=== PATIENT | male | born 1945 | race Caucasian/White ===

== ENCOUNTER 2022-12-24 13:32 | Emergency (ER) | payer MEDICARE ==
[~2022-12-24] VITALS: Ht 167.7 cm; Wt 104.0 kg
[2022-12-24 14:02] LABS: BASOPHILS # (AUTO) 0.1 10^3/uL (0.0-0.1); BASOPHILS % (AUTO) 1 % (0-10); EOSINOPHILS # (AUTO) 0.3 10^3/uL (0.0-0.3); EOSINOPHILS % (AUTO) 4 % (0-10); HEMATOCRIT 46 % (40-54); LYMPHOCYTES # (AUTO) 1.3 10^3/uL (1.0-4.0); LYMPHOCYTES % (AUTO) 21 % (12-44); MEAN CORPUSCULAR HEMOGLOBIN 27 pg (25-34); MEAN CORPUSCULAR HGB CONC 31 g/dL (32-36); MEAN CORPUSCULAR VOLUME 90 fL (80-99); MONOCYTES # (AUTO) 0.6 10^3/uL (0.0-1.0); MONOCYTES % (AUTO) 9 % (0-12); NEUTROPHILS # (AUTO) 4.2 10^3/uL (1.8-7.8); NEUTROPHILS % (AUTO) 65 % (42-75); PLATELET COUNT 174 10^3/uL (130-400); WHITE BLOOD COUNT 6.4 10^3/uL (4.3-11.0)
[2022-12-24 14:07] LABS: ALBUMIN 3.9 GM/DL (3.2-4.5); CHLORIDE 108 MMOL/L (98-107); POTASSIUM 4.2 MMOL/L (3.6-5.0); SODIUM 143 MMOL/L (135-145)
[2022-12-24 14:08] LABS: CALCIUM 9.3 MG/DL (8.5-10.1)
[2022-12-24 14:09] LABS: GLUCOSE 130 MG/DL (70-105); TOTAL PROTEIN 7.5 GM/DL (6.4-8.2)
[2022-12-24 14:10] LABS: CARBON DIOXIDE 22 MMOL/L (21-32)
[2022-12-24] MEDS ORDERED: fentaNYL INJ 100 MCG/2 ML AMP IVP STA ×3 (14:10→16:23)
[2022-12-24 14:11] LABS: BILIRUBIN,TOTAL 1.5 MG/DL (0.1-1.0)
[2022-12-24 14:13] LABS: ALKALINE PHOSPHATASE 149 U/L (40-136); CREATININE SERUM 1.24 MG/DL (0.60-1.30); GFR ESTIMATED 60
[2022-12-24 14:14] LABS: BUN/CREATININE RATIO 18
[2022-12-24 14:16] LABS: ALANINE AMINOTRANSFERASE 18 U/L (0-55)
--- NOTE | 2022-12-24 14:26 | ED Fall/Injury ---
General Chief Complaint: Trauma-Non Activation Stated Complaint: FALL Nursing Triage Note: PT TO [facility] BY [facility] WITH C/O R SHOULDER PAIN AND FOREHEAD SCRAP AFTER A FALL AT HIS HOTEL IN THE BATHROOM. PT WAS TRYING TO STAND AND FELL FOWARD INTO DOOR. PT UNKNOW IF LOC Source: patient Exam Limitations: no limitations History of Present Illness Date Seen by Provider: Dec 24, 2022 Time Seen by Provider: 13:42 Initial Comments Here by EMS with report of fall at the hotel. Apparently he is here visiting family and is staying at the hotel. He was getting ready to go to the bathroom and was pulling down his pants to sit down when he became dizzy and fell over. He hit his right arm as well as left shoulder and head. Unsure of loss of consciousness. He is on clopidogrel. Does have history of heart failure and is on Lasix and does have pacemaker. Ports that he did not take his Lasix both doses yesterday was only able to take 1 dose last night. Took another dose this morning and that is what he believes was causing him to have to go to the bathroom. 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 He believes his tetanus is up-to-date. Does have abrasion to the forehead and pain and deformity to the right upper arm as well as left shoulder. Denies neck, back, chest or abdominal pain. Occurred: this morning Severity: mild Context: lost balance Loss of Consciousness: unsure Associated Symptoms (Fall): No Abdominal Pain, No Chest Pain; Dizziness; No Headache, No Nausea/Vomiting, No Neck Pain, No Shortness of Air Allergies and Home Medications Allergies Coded Allergies: Beta-Blockers (Beta-Adrenergic Bloc (Verified Allergy, Unknown, 12/24/22) apixaban (Verified Allergy, Unknown, 12/24/22) Patient Home Medication List Home Medication List Reviewed: Yes Hydrocodone/Acetaminophen (Hydrocodone-Acetamin 7.5-325) 7.5 Mg-325 Mg Tablet, 1 EACH PO Q6H PRN for PAIN-MODERATE (5-7) Prescribed by: NARINDER LEWIS on 12/24/22 3754 Review of Systems Review of Systems Constitutional: No chills, No fever Eyes: No Symptoms Reported Ears, Nose, Mouth, Throat: no symptoms reported Respiratory: No cough; other (Dyspnea on exertion) Cardiovascular: No chest pain, No palpitations Gastrointestinal: No nausea, No vomiting Genitourinary: no symptoms reported Musculoskeletal: see HPI, joint pain, muscle pain Skin: see HPI, lesions Past Foldoag-Deboii-Uogfmh Hx Patient Social History Tobacco Use?: No Substance use?: No Alcohol Use?: No Pt feels they are or have been: No Past Medical History Surgery/Hospitalization HX: CELLULITIS, AFIB GASTRIC BYPASS, PACER, WATCHMAN, BYPASS, APPY Surgeries: Yes Appendectomy, CABG Respiratory: No Cardiac: Yes Chronic Edema/Swelling, Hypertension, Irregular Heartbeat Endocrine: Yes Family Medical History Reviewed Nursing Family Hx Physical Exam Vital Signs Vital Signs - First Documented 12/24/22 13:34 Temp 36.0 Pulse 142 Resp 18 B/P (MAP) 121/65 (83) Pulse Ox 98 O2 Delivery Room Air Capillary Refill : Height, Weight, BMI Height: '" Weight: lbs. oz. kg; 36.00 BMI Method: General Appearance: WD/WN, no apparent distress, obese HEENT: PERRL/EOMI, pharynx normal Neck: non-tender, full range of motion, supple, normal inspection Cardiovascular: regular rate, rhythm, no murmur Respiratory: lungs clear, normal breath sounds Gastrointestinal: non tender, soft Back: normal inspection, no CVA tenderness, no vertebral tenderness Extremities: inflammation, swelling Neurologic/Psychiatric: alert, oriented x 3 Ashia Coma Score Best Eye Response: (4) Open Spontaneously Best Verbal Response: (5) Oriented Best Motor Response: (6) Obeys Commands Procedures/Interventions Splinting and Joint Reduction : Location: Right humerus Pre-Proc Neuro Vasc Exam: normal Post-Proc Neuro Vasc Exam: normal Progress Coaptation splint applied to the right humerus using 3 inch Ortho-Glass over bulky Webril and secured with two 4 inch and one 3 inch Chirag wrap's and placed in sling. Tolerated procedure well with no complications and improved afterwards. Arm Sling: Large Hand-Made Type: orthoglass (Coaptation splint) Progress/Results/Core Measures Results/Orders Lab Results Laboratory Tests Test 12/24/22 13:38 Range/Units White Blood Count 6.4 4.3-11.0 10^3/uL Red Blood Count 5.11 4.30-5.52 10^6/uL Hemoglobin 14.0 13.3-17.7 g/dL Hematocrit 46 40-54 % Mean Corpuscular Volume 90 80-99 fL Mean Corpuscular Hemoglobin 27 25-34 pg Mean Corpuscular Hemoglobin Concent 31 L 32-36 g/dL Red Cell Distribution Width 18.6 H 10.0-14.5 % Platelet Count 174 130-400 10^3/uL Mean Platelet Volume 10.0 9.0-12.2 fL Immature Granulocyte % (Auto) 1 % Neutrophils (%) (Auto) 65 42-75 % Lymphocytes (%) (Auto) 21 12-44 % Monocytes (%) (Auto) 9 0-12 % Eosinophils (%) (Auto) 4 0-10 % Basophils (%) (Auto) 1 0-10 % Neutrophils # (Auto) 4.2 1.8-7.8 10^3/uL Lymphocytes # (Auto) 1.3 1.0-4.0 10^3/uL Monocytes # (Auto) 0.6 0.0-1.0 10^3/uL Eosinophils # (Auto) 0.3 0.0-0.3 10^3/uL Basophils # (Auto) 0.1 0.0-0.1 10^3/uL Immature Granulocyte # (Auto) 0.0 0.0-0.1 10^3/uL Sodium Level 143 135-145 MMOL/L Potassium Level 4.2 3.6-5.0 MMOL/L Chloride Level 108 H 98-107 MMOL/L Carbon Dioxide Level 22 21-32 MMOL/L Anion Gap 13 5-14 MMOL/L Blood Urea Nitrogen 22 H 7-18 MG/DL Creatinine 1.24 0.60-1.30 MG/DL Estimat Glomerular Filtration Rate 60 BUN/Creatinine Ratio 18 Glucose Level 130 H 70-105 MG/DL Calcium Level 9.3 8.5-10.1 MG/DL Corrected Calcium 9.4 8.5-10.1 MG/DL Total Bilirubin 1.5 H 0.1-1.0 MG/DL Aspartate Amino Transf (AST/SGOT) 23 5-34 U/L Alanine Aminotransferase (ALT/SGPT) 18 0-55 U/L Alkaline Phosphatase 149 H 40-136 U/L Troponin I < 0.028 <0.028 NG/ML C-Reactive Protein High Sensitivity 0.92 H 0.00-0.50 MG/DL B-Type Natriuretic Peptide 154.6 H <100.0 PG/ML Total Protein 7.5 6.4-8.2 GM/DL Albumin 3.9 3.2-4.5 GM/DL My Orders Orders - NARINDER LEWIS MD Ekg Tracing (12/24/22 13:54) Monitor-Rhythm Ecg Trace Only (12/24/22 13:54) Ct Head Wo (12/24/22 13:54) Chest 1 View, Ap/Pa Only (12/24/22 13:54) Humerus, Right, 2 Views (12/24/22 13:54) Bnp Hitchcock (12/24/22 13:54) Cbc With Automated Diff (12/24/22 13:54) Comprehensive Metabolic Panel (12/24/22 13:54) Hs C Reactive Protein (12/24/22 13:54) Troponin I Hitchcock (12/24/22 13:54) Fentanyl Inj (Sublimaze Injection) (12/24/22 14:10) Shoulder, Left, 2 Views (12/24/22 13:54) Fentanyl Inj (Sublimaze Injection) (12/24/22 15:02) Fentanyl Inj (Sublimaze Injection) (12/24/22 16:23) Vital Signs/I&O 12/24/22 13:34 Temp 36.0 Pulse 142 Resp 18 B/P (MAP) 121/65 (83) Pulse Ox 98 O2 Delivery Room Air Blood Pressure Mean: 83 Progress Progress Note : Progress Note Seen and evaluated. Given patient's fall and cardiac status as well as use of Plavix, we will get CT of the head as well as get chest x-ray, left shoulder x- ray and right humerus x-ray due to areas of pain. EKG ordered due to dizziness. We will check labs including CBC, CMP, CRP, BNP and troponin. Patient does have findings of chronic cellulitis on exam but he states that is unchanged. We will check CRP for current inflammatory process as well as evaluate white count. Fentanyl 50 mcg IV ordered for pain. Monitor patient. Differential diagnosis includes right humerus fracture. Left shoulder strain or fracture, intracranial hemorrhage, minor head injury, electrolyte abnormality, heart failure, cardiac event 1554: I have reviewed patient's laboratory data. CBC is grossly normal. CMP overall nonconcerning with slightly elevated blood glucose. CRP is negative. BNP is not significantly elevated. I have reviewed x-rays and find right humerus x-ray shows proximal displaced humerus fracture on my interpretation. Left shoulder does not show any fracture on my interpretation. Chest x-ray shows cardiomegaly without obvious significant infiltrate on my interpretation. CT of the head shows no obvious intracranial hemorrhage on my interpretation. See radiology report for full details. I did discuss the humerus fracture with Dr. Butt, orthopedics on-call. He is recommending coaptation splint which we will apply as well as sling and he can be seen in his office next week or follow-up with orthopedics on his return home. Patient did require additional dosing of fentanyl 50 mcg IV for pain. He is better with sitting up position. Monitor patient. 1655: Coaptation splint was placed by me. See procedure note. We did give fentanyl 75 mcg IV prior to placement of splint and sling. This did seem to help. Splint is helping with pain overall now. I have sent prescription for hydrocodone 7.5/325. I did give them information on Dr. Butt in case they stay around next week. That patient and family very appreciative of care. Discharged home with return precautions. Patient and family verbalized understanding of instructions and agreement with plan. Initial ECG Impression Date: Dec 24, 2022 Initial ECG Impression Time: 14:10 Initial ECG Rate: 69 Comment Electronic ventricular pacemaker with extreme right axis deviation. No evidence of ST elevation [place]. Interpreted by me. Diagnostic Imaging Diagonstic Imaging: CT Plain Films/CT/US/NM/MRI: head Comments [facility] [place], [place] NAME: ANT [facility] REC#: [id number] PT STATUS: REG ER : 1945 PHYSICIAN: NARINDER LEWIS MD ADMIT DATE: 12/24/22/ER Signed Date of Exam:12/24/22 CT HEAD WO PROCEDURE: CT head without contrast. TECHNIQUE: Multiple contiguous axial images were obtained through the brain without the use of intravenous contrast. Auto Exposure Controls were utilized during the CT exam to meet ALARA standards for radiation dose reduction. INDICATION: Fall, head injury, anticoagulated patient. COMPARISON: No priors. FINDINGS: There is no intracerebral hemorrhage. No hydrocephalus, edema, mass, mass effect, or abnormal extra-axial fluid collection. Basilar cisterns are patent. There is no sulcal effacement. Orbits, sinuses, and calvarium are nonacute. There is atrophy and white matter disease and chronic white matter disease as well as atherosclerotic vascular calcifications, all believed chronic and senescent. No hemo-sinus. No pneumocephalus. No fracture. IMPRESSION: Some chronic senescent changes in the brain, but no hemorrhage, fracture, or other acute/post-traumatic abnormalities identified. Dictated by: Dictated on workstation # [id number] Dict: 12/24/22 1434 Trans: 12/24/22 1526 [id number] Interpreted by: WILLIAM VASQUEZ Electronically signed by: WILLIAM VASQUEZ 12/24/22 152 Reviewed: Reviewed by [place] Diagonstic Imaging: Xray Plain Films/CT/US/NM/MRI: other Comments [facility], [place] NAME: ANT [facility] REC#: [id number] PT STATUS: REG ER : 1945 PHYSICIAN: NARINDER LEWIS MD ADMIT DATE: 12/24/22/ER Draft Date of Exam:12/24/22 HUMERUS, RIGHT, 2 VIEWS HUMERUS, RIGHT, one view INDICATION: Right shoulder pain COMPARISON: None available. TECHNIQUE: Single AP view of the right humerus. FINDINGS: There is an acute oblique fracture in the proximal shaft of the humerus. The distal fragment has posterior displacement of 2 cm. IMPRESSION: Acute and displaced humeral shaft fracture. Dictated on workstation # [id number] Dict: 12/24/22 1505 Trans: 12/24/22 1507 [facility] [id number] Interpreted by: JENAE CÁRDENAS MD Electronically signed by: Reviewed: Reviewed by [place] Diagonstic Imaging: Xray Plain Films/CT/US/NM/MRI: other Comments [facility] [place] [place] NAME: ANT [facility] REC#: [id number] PT STATUS: REG ER : 1945 PHYSICIAN: NARINDER LEWIS MD ADMIT DATE: 12/24/22/ER Draft Date of Exam:12/24/22 SHOULDER, LEFT, 2 VIEWS SHOULDER, LEFT, 2 VIEWS INDICATION: Left shoulder pain COMPARISON: None available. TECHNIQUE: 2 views left shoulder FINDINGS: Glenohumeral and acromioclavicular joints are normal alignment. No acute fracture about the left shoulder. Subacromial space is preserved. IMPRESSION: No acute fracture about the left shoulder. Dictated on workstation # [id number] Dict: 12/24/22 1507 Trans: 12/24/22 1510 [facility] [id number] Interpreted by: JENAE CÁRDENAS MD Electronically signed by: Anngonsclarisse Imaging: Xray Plain Films/CT/US/NM/MRI: chest Comments [facility], [place] NAME: ANT [facility] REC#: [id number] PT STATUS: REG ER : 1945 PHYSICIAN: NARINDER LEWIS MD ADMIT DATE: 12/24/22/ER Draft Date of Exam:12/24/22 CHEST 1 VIEW, AP/PA ONLY CHEST 1 VIEW, AP/PA ONLY INDICATION: Weakness, trauma. COMPARISON: None available. FINDINGS: Cardiomegaly is present. Potential small left pleural effusion. Left perihilar opacities are noted. No pneumothorax. Left pectoral single chamber pacemaker has intact lead. IMPRESSION: 1. Small left pleural effusion with left-sided pulmonary opacities that could be due to atelectasis, asymmetric edema, or pneumonia. Dictated on workstation # [id number] Dict: 12/24/22 1504 Trans: 12/24/22 [phone] Interpreted by: JENAE CÁRDENAS MD Electronically signed by: Departure Impression Primary Impression: Closed right humeral fracture Qualified Codes: S42.291A - Other displaced fracture of upper end of right humerus, initial encounter for closed fracture Additional Impressions: Left shoulder pain Qualified Codes: M25.512 - Pain in left shoulder Minor head injury Qualified Codes: S09.90XA - Unspecified injury of head, initial encounter Disposition: 01 HOME, SELF-CARE Condition: Stable Transfer Method of Transfer: Private Vehicle Departure-Patient Inst. Decision time for Depature: 16:58 Referrals: NO,LOCAL PHYSICIAN (PCP) Primary Care Physician LEÓN BUTT MD Patient Instructions: Upper Arm Fracture ED, Minor Head Injury, Adult ED, Shoulder Pain (DC) Add. Discharge Instructions: All discharge instructions reviewed with patient and/or family. Voiced understanding. Take medication as directed. If you are not taking the prescribed pain medicine, you may take Tylenol/acetaminophen 1000 mg every 6-8 hours as needed for pain. Do not take both at the same time. If you are planning on staying in town for the next week, call Dr. Butt's office on Tuesday morning for appointment for recheck and further evaluation of the right humerus fracture. Keep splint clean and dry and use sling at all times. If you are returning to your home next Tuesday, you will need to follow-up with a local orthopedist next week for recheck and further evaluation as discussed above. Return for worse pain, fever, vomiting, weakness, breathing problems, numbness or tingling or other concerns as needed. Continue other home medications as previously prescribed. Scripts Hydrocodone/Acetaminophen (Hydrocodone-Acetamin 7.5-325) 7.5 Mg-325 Mg Tablet 1 EACH PO Q6H PRN for PAIN-MODERATE (5-7) for 7 Days, #16 TAB 0 Refills Prov: NARINDER LEWIS MD 12/24/22 NARINDER LEWIS MD Dec 24, 2022 14:26
--- NOTE | 2022-12-24 14:39 | Diagnostic Imaging Report ---
PROCEDURE: CT head without contrast. TECHNIQUE: Multiple contiguous axial images were obtained through the brain without the use of intravenous contrast. Auto Exposure Controls were utilized during the CT exam to meet ALARA standards for radiation dose reduction. INDICATION: Fall, head injury, anticoagulated patient. COMPARISON: No priors. FINDINGS: There is no intracerebral hemorrhage. No hydrocephalus, edema, mass, mass effect, or abnormal extra-axial fluid collection. Basilar cisterns are patent. There is no sulcal effacement. Orbits, sinuses, and calvarium are nonacute. There is atrophy and white matter disease and chronic white matter disease as well as atherosclerotic vascular calcifications, all believed chronic and senescent. No hemo-sinus. No pneumocephalus. No fracture. IMPRESSION: Some chronic senescent changes in the brain, but no hemorrhage, fracture, or other acute/post-traumatic abnormalities identified. Dictated by: Dictated on workstation # [id number]
--- NOTE | 2022-12-24 15:07 | Diagnostic Imaging Report ---
CHEST 1 VIEW, AP/PA ONLY INDICATION: Weakness, trauma. COMPARISON: None available. FINDINGS: Cardiomegaly is present. Potential small left pleural effusion. Left perihilar opacities are noted. No pneumothorax. Left pectoral single chamber pacemaker has intact lead. IMPRESSION: 1. Small left pleural effusion with left-sided pulmonary opacities that could be due to atelectasis, asymmetric edema, or pneumonia. Dictated by: Dictated on workstation # [id number]
--- NOTE | 2022-12-24 15:08 | Diagnostic Imaging Report ---
HUMERUS, RIGHT, one view INDICATION: Right shoulder pain COMPARISON: None available. TECHNIQUE: Single AP view of the right humerus. FINDINGS: There is an acute oblique fracture in the proximal shaft of the humerus. The distal fragment has posterior displacement of 2 cm. IMPRESSION: Acute and displaced humeral shaft fracture. Dictated by: Dictated on workstation # [id number]
--- NOTE | 2022-12-24 15:11 | Diagnostic Imaging Report ---
SHOULDER, LEFT, 2 VIEWS INDICATION: Left shoulder pain COMPARISON: None available. TECHNIQUE: 2 views left shoulder FINDINGS: Glenohumeral and acromioclavicular joints are normal alignment. No acute fracture about the left shoulder. Subacromial space is preserved. IMPRESSION: No acute fracture about the left shoulder. Dictated by: Dictated on workstation # [id number]
[2022-12-24] MEDS ORDERED: HYDR-3817 PO (16:55)
[2022-12-24 17:15] VITALS: BP 136/64
== END 2022-12-24 17:43 | disposition home or self-care (01) ==
LOC: ER 13:36
DX: S09.90XA Unspecified injury of head, initial encounter (principal); S42.201A Unspecified fracture of upper end of right humerus, initial encounter for closed fracture; L03.90 Cellulitis, unspecified; E66.9 Obesity, unspecified; Z68.36 Body mass index [BMI] 36.0-36.9, adult; Z79.02 Long term (current) use of antithrombotics/antiplatelets; W18.30XA Fall on same level, unspecified, initial encounter; Y92.59 Other trade areas as the place of occurrence of the external cause
CPT/HCPCS: 29105; 36415; 70450; 71045; 73030; 73060; 80053; 83880; 84484; 85025; 86141; 93005

== ENCOUNTER 2022-12-25 21:55 | Inpatient (IN) | payer MEDICARE ==
[~2022-12-25] VITALS: Ht 167.7 cm; Wt 110.8 kg
[~2022-12-25 21:55] MED LIST: HYDR-3817 PO
--- NOTE | 2022-12-25 22:03 | ED General ---
General Stated Complaint: PAIN Source of Information: Patient Exam Limitations: No Limitations History of Present Illness Date Seen by Provider: Dec 25, 2022 Time Seen by Provider: 22:02 Initial Comments Patient is a 77-year-old male who presents to the emergency department with a chief complaint of diffuse pain, body aches. He was seen here in the emergency department 24 hours ago after becoming dizzy at a local hotel where he and his are staying and falling. Patient then presented to the emergency department where he was diagnosed with a spiral right proximal humerus fracture that was displaced. He had general medical work-up which included basic labs, chest x-ray, CT head without contrast. Patient was given multiple doses of IV pain medications, a prescription for hydrocodone and discharged in the care of his back to the hotel. He was anticipating traveling back home to [place] on Tuesday, however, family states that he has not gotten out of the chair at the bedside in the hotel for the last 24 hours. He is unable to stand. He has urinated on himself due to the inability to take care of toileting. Complains of severe pain to the left hip and thigh. Pain in the area of the right upper extremity splint as well. States he has not really eaten very well today. He is only had minimal urine output. He is normally on Lasix daily. His ates that she has not given him his Lasix today. H/o CHF and CABG; pacemaker. Anxiety; Allergies; Reflux. He also has a son at the bedside who is knowledgeable on his dad's health. He states that Sarabjit had home physical therapy prior to leaving [place] in order to help him tolerate the trip. He does not believe they will be able to get him into an airplane on Tuesday and the condition that he is. He states that his care exceeds the ability of Sarabjit's to maintain. Timing/Duration: 12-24 Hours Severity: Severe Modifying Factors: worse with Movement Associated Systoms: Loss of Appetite, Malaise, Weakness Allergies and Home Medications Allergies Coded Allergies: Beta-Blockers (Beta-Adrenergic Bloc (Verified Allergy, Unknown, 12/24/22) apixaban (Verified Allergy, Unknown, 12/24/22) Patient Home Medication List Home Medication List Reviewed: Yes Hydrocodone/Acetaminophen (Hydrocodone-Acetamin 7.5-325) 7.5 Mg-325 Mg Tablet, 1 EACH PO Q6H PRN for PAIN-MODERATE (5-7) Prescribed by: NARINDER LEWIS on 12/24/22 4245 Review of Systems Review of Systems Constitutional: see HPI EENTM: no symptoms reported Respiratory: no symptoms reported Cardiovascular: no symptoms reported Gastrointestinal: loss of appetite Genitourinary: decreased output Musculoskeletal: joint pain (right arm; left hip and leg) Skin: no symptoms reported All Other Systems Reviewed Negative Unless Noted: Yes Past Cwpvilq-Veybox-Jpdwvi Hx Past Medical History Surgery/Hospitalization HX: CELLULITIS, AFIB GASTRIC BYPASS, PACER, WATCHMAN, BYPASS, APPY Surgeries: Yes Appendectomy, CABG Respiratory: No Cardiac: Yes Chronic Edema/Swelling, Hypertension, Irregular Heartbeat Endocrine: Yes Physical Exam Vital Signs Vital Signs - First Documented 12/25/22 21:56 Temp 36.3 Pulse 71 Resp 20 B/P (MAP) 96/51 (66) Pulse Ox 98 O2 Delivery Room Air Capillary Refill : Height, Weight, BMI Height: '" Weight: lbs. oz. kg; 36.00 BMI Method: General Appearance: No Apparent Distress, WD/WN, Obese Eyes: Bilateral Eye Normal Inspection HEENT: PERRL/EOMI Neck: Normal Inspection Respiratory: Lungs Clear, No Accessory Muscle Use, No Respiratory Distress, De creased Breath Sounds (at bases (auscultated anteriorly)) Cardiovascular: Regular Rate, Rhythm, Normal Peripheral Pulses Gastrointestinal: Normal Bowel Sounds, Distended, Other (obese) Back: Other ((not examined)) Extremity: Pedal Edema (1+ bilateral LE edema - with chronic venous insuffieciency skin schanges), Other (RUE in long Co-Ap splint; Left thigh - edema and tender to palpation over the prox left hip) Neurologic/Psychiatric: Alert, Oriented x3, No Motor/Sensory Deficits, Normal Mood/Affect Skin: Warm/Dry Progress/Results/Core Measures Suspected Sepsis SIRS Temperature: Pulse: Respiratory Rate: Laboratory Tests 12/25/22 23:09: White Blood Count 10.3 Blood Pressure / Mean: Laboratory Tests 12/25/22 23:09: Creatinine 1.73H, Platelet Count 164, Total Bilirubin 2.2H Results/Orders Lab Results Laboratory Tests Test 12/25/22 23:09 Range/Units White Blood Count 10.3 4.3-11.0 10^3/uL Red Blood Count 4.64 4.30-5.52 10^6/uL Hemoglobin 12.8 L 13.3-17.7 g/dL Hematocrit 41 40-54 % Mean Corpuscular Volume 89 80-99 fL Mean Corpuscular Hemoglobin 28 25-34 pg Mean Corpuscular Hemoglobin Concent 31 L 32-36 g/dL Red Cell Distribution Width 18.6 H 10.0-14.5 % Platelet Count 164 130-400 10^3/uL Mean Platelet Volume 10.6 9.0-12.2 fL Immature Granulocyte % (Auto) 1 % Neutrophils (%) (Auto) 79 H 42-75 % Lymphocytes (%) (Auto) 8 L 12-44 % Monocytes (%) (Auto) 9 0-12 % Eosinophils (%) (Auto) 3 0-10 % Basophils (%) (Auto) 1 0-10 % Neutrophils # (Auto) 8.2 H 1.8-7.8 10^3/uL Lymphocytes # (Auto) 0.8 L 1.0-4.0 10^3/uL Monocytes # (Auto) 0.9 0.0-1.0 10^3/uL Eosinophils # (Auto) 0.3 0.0-0.3 10^3/uL Basophils # (Auto) 0.1 0.0-0.1 10^3/uL Immature Granulocyte # (Auto) 0.1 0.0-0.1 10^3/uL Neutrophils % (Manual) 82 % Lymphocytes % (Manual) 7 % Monocytes % (Manual) 7 % Eosinophils % (Manual) 3 % Basophils % (Manual) 1 % Polychromasia SLIGHT Sodium Level 139 135-145 MMOL/L Potassium Level 4.4 3.6-5.0 MMOL/L Chloride Level 106 98-107 MMOL/L Carbon Dioxide Level 20 L 21-32 MMOL/L Anion Gap 13 5-14 MMOL/L Blood Urea Nitrogen 32 H 7-18 MG/DL Creatinine 1.73 H 0.60-1.30 MG/DL Estimat Glomerular Filtration Rate 40 BUN/Creatinine Ratio 18 Glucose Level 148 H 70-105 MG/DL Calcium Level 8.8 8.5-10.1 MG/DL Corrected Calcium 9.0 8.5-10.1 MG/DL Total Bilirubin 2.2 H 0.1-1.0 MG/DL Aspartate Amino Transf (AST/SGOT) 20 5-34 U/L Alanine Aminotransferase (ALT/SGPT) 13 0-55 U/L Alkaline Phosphatase 134 40-136 U/L Total Creatine Kinase 263 H 30-200 U/L Total Protein 7.1 6.4-8.2 GM/DL Albumin 3.7 3.2-4.5 GM/DL My Orders Orders - PIETER PEREZ MD Ed Iv/Invasive Line Start (12/25/22 22:49) Cbc With Automated Diff (12/25/22 22:49) Comprehensive Metabolic Panel (12/25/22 22:49) Creatine Kinase (12/25/22 22:49) Ua Culture If Indicated (12/25/22 22:49) Pelvis With Left Hip 2-3 Views (12/25/22 22:52) Fentanyl Inj (Sublimaze Injection) (12/25/22 23:00) Ondansetron Injection (Zofran Injectio (12/25/22 23:00) Manual Differential (12/25/22 23:09) Ns Iv 1000 Ml (Sodium Chloride 0.9%) (12/25/22 23:59) Ct Pelvis Wo (12/26/22 23:57) Fentanyl Inj (Sublimaze Injection) (12/26/22 00:30) Medications Given in ED Current Medications Medications Dose Ordered Sig/Evelyn Route Start Time Stop Time Status Last Admin Dose Admin Fentanyl Citrate 50 mcg ONCE ONCE IVP 12/25/22 23:00 12/25/22 23:01 DC 12/25/22 23:10 50 MCG Fentanyl Citrate 50 mcg ONCE ONCE IVP 12/26/22 00:30 12/26/22 00:31 DC 12/26/22 00:24 50 MCG Ondansetron HCl 4 mg ONCE ONCE IVP 12/25/22 23:00 12/25/22 23:01 DC 12/25/22 23:10 4 MG Vital Signs/I&O 12/25/22 21:56 Temp 36.3 Pulse 71 Resp 20 B/P (MAP) 96/51 (66) Pulse Ox 98 O2 Delivery Room Air Capillary Refill : Progress Note : Time: 01:47 Progress Note Patient seen and evaluated by me. Evaluation today includes physical exam, CBC, Chem-12, total CK, plain x-rays of the pelvis and left hip, CT pelvis noncontrast. Urinalysis ordered but not obtained at this time. Pertinent phys ical exam findings, well-developed well-nourished obese male who is quite irritable and grumpy. Right arm is in a posterior lateral coaptation splint. Neurovascularly intact to the right upper extremity. Heart is regular, lungs diminished throughout no rales or wheezes noted. No increased work of breathing or distress. Abdomen distended/obese. Nontender. Significant tenderness to the left proximal lower extremity with edema noted to bilateral thighs. Skin changes consistent with venous insufficiency. 1+ edema. Both feet are warm. Differential diagnosis based on history and physical exam, occult pelvic fracture/left hip fracture. Labs independently reviewed and interpreted by me. CBC shows a white count of 10.3, hemoglobin of 12.8 hematocrit of 41, platelet count of 164. 79% segmented neutrophils. Chem-12 shows a sodium of 139 potassium of 4.4, chloride of 106 bicarb of 20, BUN of 32 and creatinine of 1.73. This is up from a BUN of 22 and creatinine of 1.24 24 hours prior. Serum glucose 148. Total bilirubin slightly elevated at 2.2. CK slightly elevated at 263. Urinalysis has been ordered but is pending at this time. Plain films of the left hip and pelvis show no obvious fractures or dislocation. He has significant arthritic change to the bilateral hip joints. CT of the pelvis noncontrast shows no obvious fracture to my interpretation. Radiology read is pending at the time of this dictation. Patient has been treated with 2 doses of IV fentanyl here in the emergency department. He is currently getting IV fluids normal saline x1 L. Case was discussed with Dr. Ziegler on for the hospitalist service. Will admit the patient with gentle hydration monitoring vital signs and respiratory status. Pain management. Physical therapy consultation on Tuesday. Patient will be admitted to [facility]. Diagnostic Imaging Diagonstic Imaging: Xray Comments Hip and left Pelvis - independently reviewed and interpreted by me - No obvious fracture/dislocation; degenerative changes of the hip and pelvis Diagonstic Imaging: CT Comments CT pelvis - independently reviewed and interpreted by me - No fracture (Stat Rad pending) Departure Communication (Admissions) Time/Spoke to Admitting Phy: 01:[address] Ziegler (hospitalist) ok to med surg; observation admission Impression Primary Impression: HOWARD (acute kidney injury) Additional Impressions: Left hip pain Closed right humeral fracture Qualified Codes: S42.331D - Displaced oblique fracture of shaft of humerus, right arm, subsequent encounter for fracture with routine healing Disposition: ADMITTED INPATIENT Condition: Stable Admissions Decision to Admit Reason: Admit from ER (General) Decision to Admit/Date: Dec 26, 2022 Time/Decision to Admit Time: 01:33 Departure-Patient Inst. Referrals: NO,LOCAL PHYSICIAN (PCP/Family) Primary Care Physician PIETER PEREZ MD Dec 25, 2022 22:02
[2022-12-25] MEDS ORDERED: fentaNYL INJ 100 MCG/2 ML AMP IVP ONE (23:00)
[2022-12-25] MEDS ORDERED: ONDANSETRON 4 MG/2 ML (SDV) Z0FRAN IVP ONE (23:00)
[2022-12-25 23:20] LABS: BASOPHILS # (AUTO) 0.1 10^3/uL (0.0-0.1); BASOPHILS % (AUTO) 1 % (0-10); EOSINOPHILS # (AUTO) 0.3 10^3/uL (0.0-0.3); EOSINOPHILS % (AUTO) 3 % (0-10); HEMATOCRIT 41 % (40-54); HEMOGLOBIN 12.8 g/dL (13.3-17.7); LYMPHOCYTES # (AUTO) 0.8 10^3/uL (1.0-4.0); LYMPHOCYTES % (AUTO) 8 % (12-44); MEAN CORPUSCULAR HEMOGLOBIN 28 pg (25-34); MEAN CORPUSCULAR HGB CONC 31 g/dL (32-36); MEAN CORPUSCULAR VOLUME 89 fL (80-99); MEAN PLATELET VOLUME 10.6 fL (9.0-12.2); MONOCYTES # (AUTO) 0.9 10^3/uL (0.0-1.0); MONOCYTES % (AUTO) 9 % (0-12); NEUTROPHILS # (AUTO) 8.2 10^3/uL (1.8-7.8); NEUTROPHILS % (AUTO) 79 % (42-75); PLATELET COUNT 164 10^3/uL (130-400); WHITE BLOOD COUNT 10.3 10^3/uL (4.3-11.0)
[2022-12-25 23:31] LABS: ALBUMIN 3.7 GM/DL (3.2-4.5); POTASSIUM 4.4 MMOL/L (3.6-5.0)
[2022-12-25 23:32] LABS: CALCIUM 8.8 MG/DL (8.5-10.1)
[2022-12-25 23:33] LABS: TOTAL PROTEIN 7.1 GM/DL (6.4-8.2)
[2022-12-25 23:35] LABS: BILIRUBIN,TOTAL 2.2 MG/DL (0.1-1.0)
[2022-12-25 23:37] LABS: CREATININE SERUM 1.73 MG/DL (0.60-1.30)
[2022-12-25 23:58] LABS: BASOPHILS % (MANUAL) 1 %; EOSINOPHILS % (MANUAL) 3 %; LYMPHOCYTES % (MANUAL) 7 %; MONOCYTES % (MANUAL) 7 %; NEUTROPHILS % (MANUAL) 82 %
[2022-12-25 23:59] LABS: POLYCHROMASIA SLIGHT
[2022-12-25] MEDS ORDERED: NS IV 1000 ML 1,000 ML IV STA (23:59)
[2022-12-26] VITALS (7 sets, daily range): BP systolic 90–122; BP diastolic 42–59
[2022-12-26] MEDS ORDERED: fentaNYL INJ 100 MCG/2 ML AMP IVP ONE (00:30)
[2022-12-26 02:10] LABS: CLARITY,URINE CLEAR; COLOR,URINE YELLOW; GLUCOSE, URINE (UA) NEGATIVE (NEGATIVE); KETONES,URINE NEGATIVE (NEGATIVE); LEUKOCYTE ESTERASE ,URINE NEGATIVE (NEGATIVE); NITRITE,URINE NEGATIVE (NEGATIVE); PH,URINE 5.5 (5-9); PROTEIN,URINE TRACE (NEGATIVE)
[2022-12-26 02:22] LABS: BILIRUBIN,URINE 1+ (NEGATIVE)
[2022-12-26 02:23] LABS: BACTERIA,URINE NEGATIVE /HPF; RBC,URINE RARE /HPF; SQUAMOUS EPITHELIAL CELL,UR 0-2 /HPF; WHITE BLOOD CELL CASTS, URINE RARE /LPF
[2022-12-26] MEDS ORDERED: ONDANSETRON 4 MG/2 ML (SDV) Z0FRAN IV PRN (03:00)
[2022-12-26] MEDS ORDERED: NS IV 1000 ML 1,000 ML IV SCH (03:00)
[2022-12-26] MEDS: fentaNYL INJ 100 MCG/2 ML AMP IV PRN ×6 (03:01→20:27)
--- NOTE | 2022-12-26 07:11 | Diagnostic Imaging Report ---
PROCEDURE: CT pelvis without contrast. TECHNIQUE: Multiple contiguous axial images were obtained through the pelvis without the use of intravenous contrast. Sagittal and coronal reformations were performed. Auto Exposure Controls were utilized during the CT exam to meet ALARA standards for radiation dose reduction. INDICATION: Severe left hip pain. COMPARISON: Plain film 12/25/2022. DISCUSSION: Moderate degenerative disease noted within the bilateral hip joints. No fracture or dislocation. Alignment is anatomic. No acute abnormality within the surrounding soft tissues. IMPRESSION: 1. Moderate degenerative disease noted within bilateral hip joints. No pelvic or hip fracture identified. No other osseous abnormality. 2. Agree with preliminary report. Dictated by: Dictated on workstation # [id number]
--- NOTE | 2022-12-26 07:35 | Diagnostic Imaging Report ---
INDICATION: Left hip pain. COMPARISON: None. DISCUSSION: AP view of the bilateral hips and two views of the left hip were obtained. Moderate degenerative disease noted within the bilateral hip joints. No fracture or dislocation. Alignment is anatomic. Soft tissues are unremarkable. IMPRESSION: Moderate bilateral hip degenerative disease. No fracture. Dictated by: Dictated on workstation # [id number]
[2022-12-26] MEDS: CLOPIDOGREL 75 MG (PLAVIX) TABLET PO SCH (08:53)
[2022-12-26] MEDS: PANTOPRAZOLE 40 MG (PROTONIX) TAB PO SCH (08:53)
[2022-12-26] MEDS: GABAPENTIN 100 MG (NEURONTIN) CAP PO SCH ×3 (08:54→20:26)
[2022-12-26] MEDS ORDERED: LIDOCAINE UROJET 2% GEL 10 ML PKG TOP ONE (12:00)
[2022-12-26] MEDS: LORazepam 0.5 MG (ATIVAN) TABLET PO PRN (13:30)
[2022-12-26] MEDS: CYCLOBENZAPRINE 10 MG (FLEXERIL) TAB PO PRN ×2 (13:30→20:26)
--- NOTE | 2022-12-26 14:50 | History & Physical-Hospitalist ---
History of Present Illness HPI/Chief Complaint Sarabjit Wright is a 77 year old male with PMH HTN, AFib, CAD, obesity, who presented with pain. He is visiting from [place]. He was in the ER on 12/24 due to humerus fracture. He was discharged from the ER with a splint, sling, and outpatient follow up recommended next week. He has not gotten out of his chair since going back to their hotel. He has been having functional incontinence. His family brought him back because they were unable to take care of him. He reports pain all over his body. He also has localized pain in his left hip and left arm. He denies chest pain. He denies shortness of breath. He denies abdominal pain. Source: patient, family Exam Limitations: no limitations Date Seen 12/26/22 Time Seen by a Provider: 11:30 Attending Physician Claire,Local Physician PCP Admitting Physician: Kati Frederick MD Attending Physician: Kati Frederick MD Referring Physician Date of Admission Dec 26, 2022 at 02:01 Home Medications & Allergies Home Medications Reviewed patient Home Medication Reconciliation performed by pharmacy medication reconciliations calibration laboratory technician and/or nursing. Patients Allergies have been reviewed. Allergies Allergies Coded Allergies Beta-Blockers (Beta-Adrenergic Bloc (Verified Allergy, Unknown, 12/24/22) apixaban (Verified Allergy, Unknown, 12/24/22) Past Efptdnx-Tiznqq-Cvpwvd Hx Patient Social History Tobacco Use?: No Smoking Status: Never a Smoker Smokeless Tobacco Frequency: Never a User Use of E-Cig and/or Vaping dev: No Substance use?: No Alcohol Use?: No Pt feels they are or have been: No Immunizations Up To Date Tetanus Booster (TDap): Less Than 5 Years Hepatitis A: Yes Hepatitis B: Yes Current Status Advance Directives: No Communicates: Verbally Primary Language: Maltese Preferred Spoken Language: Maltese Is interpretation needed?: No Sensory deficits: Vision impairment Implanted or Applied Medical D: Pacemaker Past Medical History Surgeries: Appendectomy, CABG Chronic Edema/Swelling, Hypertension, Irregular Heartbeat Family Medical History No Pertinent Family Hx Review of Systems Constitutional: weakness Respiratory: no symptoms reported Cardiovascular: no symptoms reported Gastrointestinal: no symptoms reported Physical Exam Physical Exam Vital Signs Vital Signs - First Documented 12/25/22 12/26/22 12/26/22 21:56 02:10 03:37 Temp 36.3 Pulse 71 Resp 20 B/P (MAP) 96/51 (66) Pulse Ox 98 O2 Delivery Room Air O2 Flow Rate 2.00 FiO2 21 Capillary Refill : Less Than 3 Seconds Height, Weight, BMI Height: '" Weight: lbs. oz. kg; 37.08 BMI Method: General Appearance: No Apparent Distress, Obese HEENT: PERRL/EOMI, Pharynx Normal Neck: Normal Inspection, Supple Respiratory: Lungs Clear, Normal Breath Sounds, No Respiratory Distress Cardiovascular: Regular Rate, Rhythm, No Murmur Gastrointestinal: Normal Bowel Sounds, Non Tender, Soft Extremity: No Inflammation, No Swelling; Other (right arm splinted in sling, left arm tender to light palpation, bilateral lower extremity venous stasis dermatitis) Neurologic/Psychiatric: Alert, No Motor/Sensory Deficits Skin: Warm/Dry, Other (venous stasis dermatitis) Results Results/Procedures Labs Laboratory Tests 12/25/22 23:09 Patient resulted labs reviewed. Imaging: Reviewed Imaging Report Assessment/Plan Admission Diagnosis Debility Admission Status: Observation Assessment and Plan Debility Humerus fracture Fall Right arm in splint and sling Follow up with ortho next week PT/OT Pain regimen Add muscle relaxer HOWARD IV fluids AFib CAD Obesity DVT prophylaxis: Lovenox Diagnosis/Problems Diagnosis/Problems (1) Debility Status: Acute (2) Humerus fracture Status: Acute Qualifiers: Encounter type: subsequent encounter Humerus Location: proximal Fracture type: closed Fracture alignment: displaced Laterality: right (3) Fall Status: Acute Qualifiers: Encounter type: subsequent encounter Qualified Codes: W19.XXXD - Unspecified fall, subsequent encounter (4) Obesity (5) Left shoulder pain Status: Acute Qualifiers: Chronicity: acute Qualified Codes: M25.512 - Pain in left shoulder (6) Left hip pain Status: Acute (7) HOWARD (acute kidney injury) Status: Acute KATI FREDERICK MD Dec 26, 2022 14:49
[2022-12-26] MEDS: NS IV 1000 ML 1,000 ML IV SCH (18:35)
[2022-12-26] MEDS: MELATONIN 10 MG TABLET PO SCH (20:26)
[2022-12-26] MEDS: eZETimibe 10 MG (ZETIA) TABLET PO SCH (20:26)
[2022-12-27 03:27] VITALS: BP 117/57
[2022-12-27] MEDS: CYCLOBENZAPRINE 10 MG (FLEXERIL) TAB PO PRN ×2 (04:33→12:04)
[2022-12-27] MEDS: fentaNYL INJ 100 MCG/2 ML AMP IV PRN ×3 (04:33→10:29)
[2022-12-27 05:25] LABS: BASOPHILS # (AUTO) 0.1 10^3/uL (0.0-0.1); BASOPHILS % (AUTO) 1 % (0-10); EOSINOPHILS # (AUTO) 0.3 10^3/uL (0.0-0.3); EOSINOPHILS % (AUTO) 3 % (0-10); HEMATOCRIT 35 % (40-54); HEMOGLOBIN 10.9 g/dL (13.3-17.7); LYMPHOCYTES # (AUTO) 0.6 10^3/uL (1.0-4.0); LYMPHOCYTES % (AUTO) 6 % (12-44); MEAN CORPUSCULAR HEMOGLOBIN 28 pg (25-34); MEAN CORPUSCULAR HGB CONC 31 g/dL (32-36); MEAN CORPUSCULAR VOLUME 91 fL (80-99); MEAN PLATELET VOLUME 10.8 fL (9.0-12.2); MONOCYTES % (AUTO) 10 % (0-12); NEUTROPHILS # (AUTO) 7.4 10^3/uL (1.8-7.8); NEUTROPHILS % (AUTO) 80 % (42-75); PLATELET COUNT 149 10^3/uL (130-400); WHITE BLOOD COUNT 9.3 10^3/uL (4.3-11.0)
[2022-12-27 05:26] LABS: POTASSIUM 4.4 MMOL/L (3.6-5.0)
[2022-12-27 05:29] LABS: TOTAL PROTEIN 5.9 GM/DL (6.4-8.2)
[2022-12-27 05:32] LABS: CREATININE SERUM 1.22 MG/DL (0.60-1.30)
[2022-12-27 07:44] VITALS: BP 113/70
[2022-12-27] MEDS: NS IV 1000 ML 1,000 ML IV SCH ×2 (07:58→21:37)
[2022-12-27] MEDS: GABAPENTIN 100 MG (NEURONTIN) CAP PO SCH ×3 (07:58→21:37)
[2022-12-27] MEDS: CLOPIDOGREL 75 MG (PLAVIX) TABLET PO SCH (07:59)
[2022-12-27] MEDS: PANTOPRAZOLE 40 MG (PROTONIX) TAB PO SCH (07:59)
[2022-12-27] MEDS ORDERED: ASPI-1238 PO (09:55)
[2022-12-27] MEDS ORDERED: FURO40TA4 PO (09:56)
[2022-12-27] MEDS ORDERED: CHLO4TAB36 PO (09:56)
[2022-12-27] MEDS ORDERED: IBUP-2473 PO (09:57)
[2022-12-27] MEDS ORDERED: LORA-404 PO (09:57)
[2022-12-27] MEDS ORDERED: NITR0.4T39 SL (09:58)
--- NOTE | 2022-12-27 11:41 | Occupational Therapy Eval ---
OT Evaluation-General/PLF Medical Diagnosis Admission Date Dec 26, 2022 at 02:01 Medical Diagnosis: s/p fall w/ R Humerus fx Onset Date: Dec 26, 2022 Therapy Diagnosis Therapy Diagnosis: Pain limited mobility and ADLS, weakness Precautions Precautions/Isolations: Fall Prevention, Standard Precautions Weight Bear Status Weight Bearing Restriction: Non Weight Bearing Location Restriction: R UE Splint, BERNADETTE wrap, sling Referral Physician: YOLY Referral Reason: Activity Tolerance, Self Care, Evaluation/Treatment, Strengthening/ROM Medical History Additional Medical History Sarabjit Wright is a 77 year old male with PMH HTN, AFib, CAD, obesity, who presented with pain. He is visiting from [place]. He was in the ER on 12/24 due to humerus fracture. He was discharged from the ER with a splint, sling, and outpatient follow up recommended next week. He has not gotten out of his chair since going back to their hotel. He has been having functional incontinence. His family brought him back because they were unable to take care of him. He reports pain all over his body. He also has localized pain in his left hip and left arm at admission He denied chest pain. He denied shortness of breath Current History Patient hollers loudly and frequency in anticipation of movement c/o pain to touch, c/o pain to unaffected areas.Patient reports he is unable to control his yelling. Social History Visiting from [place], staying at a local hotel ADL-Prior Level of Function SCALE: Activities may be completed with or without assistive devices. 4-Uhofvpdixf-apajpxi completes the activity by him/herself with no assistance from a helper. 5-Set-up or Clean-up Assistance-helper sets up or cleans up; patient completes activity. [place] assists only prior to or following the activity. 4-Supervision or Touching Assistance-helper provides verbal cues and/or touching/steadying and/or contact guard assistance as patient completes activity. Assistance may be provided throughout the activity or intermittently. 3-Partial/Moderate Assistance-helper does LESS THAN HALF the effort. [place] lifts, holds or supports trunk or limbs, but provides less than half the effort. 2-Substantial/Maximal Assistance-helper does MORE THAN HALF the effort. [place] lifts or holds trunk or limbs and provides more than half the effort. 1-Aextbpqpm-xihqho does ALL the effort. Patient does none of the effort to complete the activity. Or, the assistance of 2 or more helpers is required for the patient to complete the activity. If activity was not attempted, code reason: 7-Patient Refused. 9-Not Applicable-not attempted and the patient did not perform the activity before the current illness, exacerbation or injury. 10-Not Attempted due to Environmental Limitations-(lack of equipment, weather restraints, etc.). 88-Not Attempted due to Medical Conditions or Safety Concerns. ADL PLOF Comments Independent w/ ADLS, reports she does not allow patient to drive d/t poor reaction and vision. is in room and pleasantly helpful. Self Care: Independent Functional Cognition: Independent Occupation: Retired RN Drive Self: No OT Current Status Subjective Propped in bed and very resistive to touch, ROM and remote bed adjustment of HOB, FOB and height. Safety education provided. Pain Numeric Pain Scale: 8 Location: Right Location Body Site: Arm Comment: OT assesed pain to RUE and Protective movement during bed mob, transition Mental Status/Objective Patient Orientation: Person, Place, Time, Situation Attachments: Duque Catheter, Oxygen, SCD's Current Glasses/Contacts: Yes (requires VC to OPEN eyes) Upper Extremity ROM RUE restricted d/t FX and sling/splint, LUE unaccessible at this time d/t patient refusal to move or allow PROM by therapist, At conclusion of session OT observed patient itch corner of eye and hold bedrail to position self. Upper Extremity Strength NA unable to fully assess d/t patient behavior ADL-Treatment Eating (QC): 7 (OT instructed to encourage patient to feed himself) Oral Hygiene (QC): 1 Shower/Bathe Self (QC): 7 Upper Body Dressing (QC): 1 Lower Body Dressing (QC): 1 On/Off Footwear (QC): 1 (Screams when OT apllied socks, patient has B heel wound dressing) Toileting Hygiene (QC): 1 Several attempt made to transfer patient to recliner, patient refuses to bear any weight to LEs to stand, dependent x2 side lying to sit Patient forceful resistive to movement Education OT Patient Education: Correct positioning, Exercise program, Instructions don/doff splint/brace, Instructions to caregiver, Modified ADL techniques, Progress toward Goal/Update tx plan, Purpose of tx/functional activities, Reviewed precautions, Rehab process, Safety issues, Transfer techniques, Use of adapted equipment Teaching Recipient: Patient, Family Teaching Methods: Demonstration, Discussion Response to Teaching: Reinforcement Needed OT Vacuum Plastic Forming Machine Operator Goals Vacuum Plastic Forming Machine Operator Goals Eating (QC): 6 Oral Hygiene (QC): 5 Toileting Hygiene (QC): 4 Shower/Bathe Self (QC): 4 Upper Body Dressing (QC): 4 Lower Body Dressing (QC): 4 On/Off Footwear (QC): 5 1=Demonstrate adherence to instructed precautions during ADL tasks. 2=Patient will verbalize/demonstrate understanding of assistive devices/modifications for ADL. 3=Patient will improve strength/tolerance for activity to enable patient to perform ADL's. OT Education/Plan Problem List/Assessment Assessment: Decreased Activ Tolerance, Decreased Safety Aware, Decreased UE Strength, Dependent Transfers, Impaired Bed Mobility, Impaired Cognition, Impaired Coordination, Impaired Funct Balance, Impaired Self-Care Skills Discharge Recommendations Plan/Recommendations: Continue POC Treatment Plan/Plan of Care Treatment,Training & Education: Yes Patient would benefit from OT for education, treatment and training to promote independence in ADL's, mobility, safety and/or upper extremity function for ADL's. Plan of Care: ADL Retraining, Caregiver Training, Cognitive Retraining, Concu rrent Therapy, Functional Mobility, Group Exercise/Act as Ind, UE Funct Exercise/Act, UE Neuromus Re-Ed/Coord Treatment Duration: Jan 01, 2023 Frequency: 3 times per week (3-5 times per week) Estimated Hrs Per Day: .25 hour per day Patient repositioned n bed w/ wedge along right side of back. in room all needs met Time Start Time: 09:30 Stop Time: 10:13 DATE: Dec 27, 2022 Total Time Billed (hr/min): 43 Billed Treatment Time CHERIE, FA 43 min FAYE ODOM OT Dec 27, 2022 11:41
--- NOTE | 2022-12-27 11:53 | Physical Therapy Evaluation ---
PT Evaluation-General Medical Diagnosis Admission Date Dec 26, 2022 at 02:01 Medical Diagnosis: acute kidney injury/right humerus fracture/left hip pain Onset Date: Dec 26, 2022 Therapy Diagnosis Therapy Diagnosis: generalized weakness/debility Precautions Precautions/Isolations: Standard Precautions Referral Physician: Toney Reason for Referral: Evaluation/Treatment Medical History Pertinent Medical History: Atrial Fib, CABG, Heart Failure, HTN Current History ER x 2 secondary fall resulting in right humerus fracture/diffuse pain/body aches Reviewed History: Yes Social History Home: Single Level Current Living Status: Spouse Prior Prior Level of Function SCALE: Activities may be completed with or without assistive devices. 6-Ivltofflgj-vmecljw completes the activity by him/herself with no assistance from a helper. 5-Set-up or Clean-up Assistance-helper sets up or cleans up; patient completes activity. [place] assists only prior to or following the activity. 4-Supervision or Touching Assistance-helper provides verbal cues and/or touching/steadying and/or contact guard assistance as patient completes activity. Assistance may be provided throughout the activity or intermittently. 3-Partial/Moderate Assistance-helper does LESS THAN HALF the effort. [place] lifts, holds or supports trunk or limbs, but provides less than half the effort. 2-Substantial/Maximal Assistance-helper does MORE THAN HALF the effort. [place] lifts or holds trunk or limbs and provides more than half the effort. 9-Lczdywbup-fpzdry does ALL the effort. Patient does none of the effort to complete the activity. Or, the assistance of 2 or more helpers is required for the patient to complete the activity. If activity was not attempted, code reason: 7-Patient Refused. 9-Not Applicable-not attempted and the patient did not perform the activity before the current illness, exacerbation or injury. 10-Not Attempted due to Environmental Limitations-(lack of equipment, weather restraints, etc.). 88-Not Attempted due to Medical Conditions or Safety Concerns. Bed Mobility: 6 Transfers (B,C,W/C): 6 Gait: 6 Indoor Mobility (Ambulation): Independent Stairs: Independent Prior Devices Use: None PT Evaluation-Current Subjective Patient yells with any light touch, small movement or anticipation of. Patient is very unreasonable and cannot be redirected to calmly participate with the rapy. Pain Numeric Pain Scale: 10-Worst Possible Pain Location: Soft Tissue Location Body Site: Generalized Pain Description: Acute Comment: total body pain per patient Objective Attachments: Oxygen, Duque Catheter, IV ROM/Strength ROM Lower Extremities bilateral LE WFL (after patient finally calmed and returned to bed patient able to actively move bilateral LE's without difficulty) Strength Lower Extremities patient is very resistive with all movement (very strong with resisting movement/unable to fully assess due to patient's behavior) Integumentary/Posture Bladder Incontinence: Duque Cath Posture slightly kyphotic Neuromuscular (Tone, Coordination, Reflexes) unable to fully assess/however appears to be intact Sensory Vision: Wears Glasses Hearing: Functional Transfers Roll Left to Right (QC): 2 Sit to Lying (QC): 1 Lying to Sitting/Side of Bed(Q: 1 Sit to Stand (QC): 7 Chair/Maz-zx-Ucwez Xfer(QC): 7 Gait Mode of Locomotion: Walk Anticipated Mode of Locomotion: Walk Walk 10 feet (QC): 7 Balance Sitting Static: Fair Sitting Dynamic: Fair Assessment/Needs Patient will benefit from skilled PT to address functional strength and mobility to improve current LOF to safely return to independent PLOF. Patient appears very behavioral with yelling during entire session with all mobility. Patient did not respond to calming techniques by therapist. Patient's spouse present du ring session. Rehab Potential: Fair PT Short Term Goals Short Term Goals Time Frame: Jan 01, 2023 Roll Left & Right: 3 Sit to lyin Lying to sitting on side of be: 3 Sit to stand: 3 Chair/cbh-xp-qskan transfer: 3 Walk 10 feet: 3 Walk 50 feet with two turns: 3 PT Patient Care Nursing Assistant Goals Patient Care Nursing Assistant Goals Roll Left & Right (QC): 6 Sit to Lying (QC): 6 Lying-Sitting on Side/Bed(QC): 6 Sit to Stand (QC): 6 Chair/Ved-nc-Hfbho Xfer(QC): 6 Toilet Transfer (QC): 6 Walk 10 feet (QC): 6 Walk 50ft with 2 Turns (QC): 6 Walk 150 ft (QC): 6 PT Plan Problem List Problem List: Activity Tolerance, Functional Strength, Safety, Balance, Gait, Transfer, Bed Mobility, ROM, Other (uncontrolled pain) Treatment/Plan Treatment Plan: Continue Plan of Care Treatment Plan: Bed Mobility, Education, Functional Activity Beatriz, Functional Strength, Gait, Safety, Therapeutic Exercise, Transfers Treatment Duration: Jan 08, 2023 Frequency: 6 times per week Estimated Hrs Per Day: .5 hour per day Time Time In: 1020 Time Out: 1053 DATE: Dec 27, 2022 Total Billed Treatment Time: 43 Total Billed Treatment 1 visit EVModC 20 min FA x 2 23 min OFELIA FIELDS PT Dec 27, 2022 11:53
[2022-12-27 11:54] VITALS: BP 115/69
[2022-12-27] MEDS: HYDROcodone/APAP 7.5 MG/325 MG (LORTAB, LORCET PLUS) TABLET PO PRN ×2 (12:05→17:05)
--- NOTE | 2022-12-27 14:35 | Progress Note - Hospitalist ---
Subjective HPI/CC On Admission Date Seen by Provider: Dec 27, 2022 Sarabjit Wright is a 77 year old male with PMH HTN, AFib, CAD, obesity, who presented with pain. He is visiting from [place]. He was in the ER on 12/24 due to humerus fracture. He was discharged from the ER with a splint, sling, and outpatient follow up recommended next week. He has not gotten out of his chair since going back to their hotel. He has been having functional incontinence. His family brought him back because they were unable to take care of him. He reports pain all over his body. He also has localized pain in his left hip and left arm. He denies chest pain. He denies shortness of breath. He denies abdominal pain. Subjective/Events-last exam Pt reports persistent pain. States it is in her arm and legs "into the ball socket" and is a pain like he has never experienced. PT to room as I am in there. Discussed importance of working with them to prevent further weakness and pain. Objective Exam Vital Signs Vital Signs Date Time Temp Pulse Resp B/P (MAP) Pulse Ox O2 Delivery O2 Flow Rate FiO2 12/27/22 11:54 36.6 70 18 115/69 (84) 96 Nasal Cannula 1.50 12/26/22 03:37 21 Capillary Refill : Less Than 3 Seconds General Appearance: No Apparent Distress, Chronically ill, Obese Respiratory: Lungs Clear, No Respiratory Distress Cardiovascular: Regular Rate, Rhythm, No Murmur Neurologic/Psychiatric: Alert, Oriented x3 Results/Procedures Lab Laboratory Tests 12/27/22 05:05 Patient resulted labs reviewed. Imaging: Reviewed Imaging Report Assessment/Plan Assessment and Plan Assess & Plan/Chief Complaint Debility Humerus fracture Fall Right arm in splint and sling Follow up with ortho next week- Spoke with Dr Butt- states no indication for surgery- recommends repeat XR in 1 week PT/OT Pain regimen, add orals Continue muscle relaxer IRF eval HOWARD Improved AFib CAD Obesity DVT prophylaxis: CALI Flannery MD Dec 27, 2022 14:35
[2022-12-27 15:20] VITALS: BP 119/59
[2022-12-27] MEDS: ENOXAPARIN 40 MG/0.4 ML (LOVENOX) SYR SQ SCH (17:03)
[2022-12-27] MEDS: LORazepam 0.5 MG (ATIVAN) TABLET PO PRN (17:05)
[2022-12-27 19:00] VITALS: BP 122/62
[2022-12-27] MEDS: eZETimibe 10 MG (ZETIA) TABLET PO SCH (21:36)
[2022-12-27] MEDS: MELATONIN 10 MG TABLET PO SCH (21:37)
[2022-12-27 23:14] VITALS: BP 111/63
[2022-12-28] MEDS: HYDROcodone/APAP 7.5 MG/325 MG (LORTAB, LORCET PLUS) TABLET PO PRN (00:14)
[2022-12-28 03:35] VITALS: BP 120/65
[2022-12-28 07:45] VITALS: BP 132/60
[2022-12-28] MEDS: PANTOPRAZOLE 40 MG (PROTONIX) TAB PO SCH (08:23)
[2022-12-28] MEDS: CYCLOBENZAPRINE 10 MG (FLEXERIL) TAB PO PRN (08:23)
[2022-12-28] MEDS: GABAPENTIN 100 MG (NEURONTIN) CAP PO SCH ×3 (08:24→20:21)
[2022-12-28] MEDS: CLOPIDOGREL 75 MG (PLAVIX) TABLET PO SCH (08:25)
[2022-12-28] MEDS: NS IV 1000 ML 1,000 ML IV SCH (11:38)
--- NOTE | 2022-12-28 11:59 | Physical Therapy Daily Note ---
PT Daily Note-Current Subjective Patient is very groggy. present. Patient continues to yell with any and all touch and movement bilateral LE and total body. Pain Section J - Health Conditions 1. Rarely or not at all 2. Occasionally 3. Frequently 4. Almost constantly 8. Unable to answer Pain Effect on Sleep: 8 Pain Interference with Therapy: 8 Pain Interference w/Day-to-Day: 8 Mental Status Attachments: Oxygen, Duque Catheter, IV Transfers SCALE: Activities may be completed with or without assistive devices. 3-Xhhpebvpge-xkbymvg completes the activity by him/herself with no assistance from a helper. 5-Set-up or Clean-up Assistance-helper sets up or cleans up; patient completes activity. [place] assists only prior to or following the activity. 4-Supervision or Touching Assistance-helper provides verbal cues and/or touching/steadying and/or contact guard assistance as patient completes activity. Assistance may be provided throughout the activity or intermittently. 3-Partial/Moderate Assistance-helper does LESS THAN HALF the effort. [place] lifts, holds or supports trunk or limbs, but provides less than half the effort. 2-Substantial/Maximal Assistance-helper does MORE THAN HALF the effort. [place] lifts or holds trunk or limbs and provides more than half the effort. 3-Nvkhhqdjb-hscprm does ALL the effort. Patient does none of the effort to complete the activity. Or, the assistance of 2 or more helpers is required for the patient to complete the activity. If activity was not attempted, code reason: 7-Patient Refused. 9-Not Applicable-not attempted and the patient did not perform the activity before the current illness, exacerbation or injury. 10-Not Attempted due to Environmental Limitations-(lack of equipment, weather restraints, etc.). 88-Not Attempted due to Medical Conditions or Safety Concerns. Roll Left & Right (QC): 1 (x 2) Sit to Lying (QC): 1 (x 2) Lying to Sitting/Side of Bed(Q: 1 (x 2) bed placed in trendelenburg to assist with bed mobility positioning Exercises Supine Ex: Heel Slides, Straight leg raise Supine Reps: 15 (AAROM bilaterally) Treatments Patient sat EOB, at time SBA, and then requiring dependent assist due to patient throwing self back. Patient requires continuous redirection to remain on task. Patient displays good strength bilateral LE with resisting all ROM. Patient did demonstrate AAROM bilateral LE in supine after yelling and resisting with PT continuously performing ROM. Assessment Current Status: Poor Progress Patient continues to be lethargic and yell continuously with any and all touch/mobility. Patient demonstrates good strength by resisting all mobility and ROM. PT discussed with physician on patient's tolerance/reaction to therapy on this date. Unchanged from yesterday's session. PT Short Term Goals Short Term Goals Time Frame: Jan 01, 2023 Roll Left & Right: 3 Sit to lyin Lying to sitting on side of be: 3 Sit to stand: 3 Chair/bqo-zh-bxbny transfer: 3 Walk 10 feet: 3 Walk 50 feet with two turns: 3 PT Prison Goals Music Leader Goals Roll Left & Right (QC): 6 Sit to Lying (QC): 6 Lying-Sitting on Side/Bed(QC): 6 Sit to Stand (QC): 6 Chair/Hbd-jc-Aylbg Xfer(QC): 6 Toilet Transfer (QC): 6 Walk 10 feet (QC): 6 Walk 50ft with 2 Turns (QC): 6 Walk 150 ft (QC): 6 PT Plan Treatment/Plan Treatment Plan: Continue Plan of Care Treatment Plan: Bed Mobility, Education, Functional Activity Beatriz, Functional Strength, Gait, Safety, Therapeutic Exercise, Transfers Treatment Duration: Jan 08, 2023 Frequency: 6 times per week Estimated Hrs Per Day: .5 hour per day Time Time In: 1120 Time Out: 1148 DATE: Dec 28, 2022 Total Billed Treatment Time: 28 Total Billed Treatment 1 visit FA x 2 28 min OFELIA FIELDS PT Dec 28, 2022 11:59
--- NOTE | 2022-12-28 12:01 | Occupational Ther Daily Note ---
OT Current Status-Daily Note Subjective Patient is painful confused w/ ROM/touch and positioning, hollers and curses. Pain Comment: inconsistent in pain respopnses OT manipulating positoin of R w/o pain Mental Status/Objective Patient Orientation: Person (frequent VC to OPEN eyes) Attachments: Duque Catheter, IV ADL-Treatment Unable to perform ADLS see other therapy Therapy Code Descriptions/Definitions Functional Beverly Measure: 0=Not Assessed/NA 4=Minimal Assistance 1=Total Assistance 5=Supervision or Setup 2=Maximal Assistance 6=Modified Beverly 3=Moderate Assistance 7=Complete IndependenceSCALE: Activities may be completed with or without assistive devices. 6-Dzydquwbno-mspghuq completes the activity by him/herself with no assistance from a helper. 5-Set-up or Clean-up Assistance-helper sets up or cleans up; patient completes activity. [place] assists only prior to or following the activity. 4-Supervision or Touching Assistance-helper provides verbal cues and/or touching/steadying and/or contact guard assistance as patient completes activity. Assistance may be provided throughout the activity or intermittently. 3-Partial/Moderate Assistance-helper does LESS THAN HALF the effort. [place] lifts, holds or supports trunk or limbs, but provides less than half the effort. 2-Substantial/Maximal Assistance-helper does MORE THAN HALF the effort. [place] lifts or holds trunk or limbs and provides more than half the effort. 2-Cfvebgoet-gnvpee does ALL the effort. Patient does none of the effort to complete the activity. Or, the assistance of 2 or more helpers is required for the patient to complete the activity. If activity was not attempted, code reason: 7-Patient Refused. 9-Not Applicable-not attempted and the patient did not perform the activity before the current illness, exacerbation or injury. 10-Not Attempted due to Environmental Limitations-(lack of equipment, weather restraints, etc.). 88-Not Attempted due to Medical Conditions or Safety Concerns. Other Treatment Sitting EOB static balance impaired at POOR, requires hand over hand position to grasp bedraill for support, patient is inconsistent in visual tracking to locate bedrail and objects in room. Patient demonstrates inconsistent motor firing and mm control Education OT Patient Education: Correct positioning, Progress toward Goal/Update tx plan, Purpose of tx/functional activities, Reviewed precautions, Rehab process, Safety issues Teaching Recipient: Patient, Family Teaching Methods: Discussion Response to Teaching: Reinforcement Needed OT Longterm Goals Antenna Design Engineer Goals Eating (QC): 6 Oral Hygiene (QC): 5 Toileting Hygiene (QC): 4 Shower/Bathe Self (QC): 4 Upper Body Dressing (QC): 4 Lower Body Dressing (QC): 4 On/Off Footwear (QC): 5 1=Demonstrate adherence to instructed precautions during ADL tasks. 2=Patient will verbalize/demonstrate understanding of assistive devices/modifications for ADL. 3=Patient will improve strength/tolerance for activity to enable patient to perform ADL's. OT Education/Plan Problem List/Assessment Assessment: Decreased Activ Tolerance, Decreased Safety Aware, Decreased UE Strength, Dependent Transfers, Impaired Self-Care Skills Discharge Recommendations Plan/Recommendations: Continue POC Treatment Plan/Plan of Care Patient would benefit from OT for education, treatment and training to promote independence in ADL's, mobility, safety and/or upper extremity function for ADL's. Plan of Care: ADL Retraining, Caregiver Training, Cognitive Retraining, Concurrent Therapy, Functional Mobility, Group Exercise/Act as Ind, UE Funct Exercise/Act, UE Neuromus Re-Ed/Coord Treatment Duration: Jan 01, 2023 Frequency: 3 times per week (3-5 times per week) Estimated Hrs Per Day: .25 hour per day Rehab Potential: Fair Time Start Time: 11:40 Stop Time: 12:00 DATE: Dec 28, 2022 Total Time Billed (hr/min): 20 Billed Treatment Time EX 20 min FAYE ODOM OT Dec 28, 2022 12:01
[2022-12-28 12:21] VITALS: BP 120/56
--- NOTE | 2022-12-28 14:59 | Progress Note - Hospitalist ---
Subjective HPI/CC On Admission Date Seen by Provider: Dec 28, 2022 Sarabjit Wright is a 77 year old male with PMH HTN, AFib, CAD, obesity, who presented with pain. He is visiting from [place]. He was in the ER on 12/24 due to humerus fracture. He was discharged from the ER with a splint, sling, and outpatient follow up recommended next week. He has not gotten out of his chair since going back to their hotel. He has been having functional incontinence. His family brought him back because they were unable to take care of him. He reports pain all over his body. He also has localized pain in his left hip and left arm. He denies chest pain. He denies shortness of breath. He denies abdominal pain. Subjective/Events-last exam Pt sleepy this morning. attempted to contact Dr Butt's office but they did not have referral yet and she was very upset. Discussed with her that Dr Butt and I have been communicating so he is aware of patient. We also reviewed his pain medicine as he is quite sleepy. Adjustments made in room while talking to but encouraged her to let us know if his pain is then uncontrolled. Objective Exam Vital Signs Vital Signs Date Time Temp Pulse Resp B/P (MAP) Pulse Ox O2 Delivery O2 Flow Rate FiO2 12/28/22 12:21 36.4 71 18 120/56 (77) 93 Nasal Cannula 2.00 12/26/22 03:37 21 Capillary Refill : Less Than 3 Seconds General Appearance: Obese, Other (sleeping when I entered, easily awakens and answers questions but right but to sleep otherwise) Respiratory: Lungs Clear, No Respiratory Distress Cardiovascular: Regular Rate, Rhythm, No Murmur Results/Procedures Lab Patient resulted labs reviewed. Imaging: Reviewed Imaging Report Assessment/Plan Assessment and Plan Assess & Plan/Chief Complaint Debility Humerus fracture Fall Right arm in splint and sling Spoke with Dr Butt today- he states he will speak with patient's today and number and name of given to him, appreciate recommendations PT/OT adjusted pain regimen Continue muscle relaxer IRF eval HOWARD- resolved AFib CAD Obesity Home meds as able states he had become noncompliant at home and med tech reviewed meds and adjusted med rec for what he is actually taking DVT prophylaxis: CALI Flannery MD Dec 28, 2022 14:58
[2022-12-28] MEDS: ENOXAPARIN 40 MG/0.4 ML (LOVENOX) SYR SQ SCH (15:10)
[2022-12-28 15:20] VITALS: BP 122/58
--- NOTE | 2022-12-28 17:06 | CONSULTATION REPORT ---
DATE OF SERVICE: 12/28/2022 REASON FOR CONSULTATION: Right humerus fracture. HISTORY OF PRESENT ILLNESS: The patient is a 77-year-old gentleman visiting from out of town with multiple medical problems including history of respiratory distress, coronary artery disease, obesity and limited mobility. He fell on Tuesday and sustained a humeral shaft fracture. Single view at that point demonstrated adequate alignment. The original plan was for the patient to return to [place] however, he had poor mobility and was ultimately admitted to the hospital because of deconditioning and pain management issues. On exam, his right upper extremity is in a well-molded splint. He has intact MCP extension, finger abduction, thumb IP flexion and extension. Sensation is intact in a radial, ulnar and median distribution. Radiographs reveal some shortening of the fracture on the single view, but otherwise adequate alignment. I had a lengthy discussion with the patient and his regarding treatment options. I explained the humeral shaft fractures can heal uneventfully with acceptable alignment. In addition, the patient is a poor candidate for surgical intervention currently. I would recommend repeat radiographs in the splint with possible operative intervention if the alignment is inadequate or lost. If the alignment is adequate, I would recommend conversion to an orthosis for this upper extremity in a week or so once the swelling has subsided. Thank you for the consultation. Job ID: [id number] DocumentID: [id number] Dictated Date: 12/28/2022 16:48:29 Placement Director Date: 12/28/2022 17:05:00 Dictated By: LEÓN AVILA MD
--- NOTE | 2022-12-28 17:28 | Diagnostic Imaging Report ---
INDICATION: Fracture. Comparison is made with prior exam of 12/24/2022. FINDINGS: There is an oblique fracture through the proximal humeral diaphysis which is moderately displaced. The alignment is unchanged. There is no other acute fracture or dislocation. Right lung apex is clear. IMPRESSION: Oblique fracture through the proximal right humeral diaphysis which is moderately displaced. Dictated by: Dictated on workstation # [id number]
[2022-12-28 19:26] VITALS: BP 112/57
[2022-12-28] MEDS: HYDROcodone/APAP 5 MG/325 MG (LORTAB) TAB PO PRN (20:21)
[2022-12-28] MEDS: eZETimibe 10 MG (ZETIA) TABLET PO SCH (20:21)
[2022-12-28] MEDS: MELATONIN 10 MG TABLET PO SCH (20:21)
[2022-12-28 23:32] VITALS: BP 118/70
[2022-12-29] MEDS: NS IV 1000 ML 1,000 ML IV SCH ×2 (00:23→13:52)
[2022-12-29 03:46] VITALS: BP 119/85
[2022-12-29] MEDS: HYDROcodone/APAP 5 MG/325 MG (LORTAB) TAB PO PRN ×3 (04:56→17:49)
[2022-12-29 06:20] LABS: HEMATOCRIT 33 % (40-54); HEMOGLOBIN 9.9 g/dL (13.3-17.7); MEAN CORPUSCULAR HEMOGLOBIN 28 pg (25-34); MEAN CORPUSCULAR HGB CONC 30 g/dL (32-36); MEAN CORPUSCULAR VOLUME 93 fL (80-99); MEAN PLATELET VOLUME 10.6 fL (9.0-12.2); PLATELET COUNT 143 10^3/uL (130-400); WHITE BLOOD COUNT 8.9 10^3/uL (4.3-11.0)
[2022-12-29 06:45] LABS: CALCIUM 8.3 MG/DL (8.5-10.1); CREATININE SERUM 1.06 MG/DL (0.60-1.30); POTASSIUM 4.5 MMOL/L (3.6-5.0)
[2022-12-29 07:34] VITALS: BP 114/71
[2022-12-29] MEDS: PANTOPRAZOLE 40 MG (PROTONIX) TAB PO SCH (09:13)
[2022-12-29] MEDS: GABAPENTIN 100 MG (NEURONTIN) CAP PO SCH ×4 (09:13→20:13)
[2022-12-29] MEDS: CLOPIDOGREL 75 MG (PLAVIX) TABLET PO SCH (09:13)
--- NOTE | 2022-12-29 09:50 | Physical Therapy Daily Note ---
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 Pain Section J - Health Conditions 1. Rarely or not at all 2. Occasionally 3. Frequently 4. Almost constantly 8. Unable to answer Pain Effect on Sleep: 8 Pain Interference with Therapy: 8 Pain Interference w/Day-to-Day: 8 Mental Status Patient Orientation: Person Attachments: Oxygen, Duque Catheter, IV Transfers SCALE: Activities may be completed with or without assistive devices. 7-Dyvhgsjfqx-ztvgudy completes the activity by him/herself with no assistance from a helper. 5-Set-up or Clean-up Assistance-helper sets up or cleans up; patient completes activity. [place] assists only prior to or following the activity. 4-Supervision or Touching Assistance-helper provides verbal cues and/or touching/steadying and/or contact guard assistance as patient completes activity. Assistance may be provided throughout the activity or intermittently. 3-Partial/Moderate Assistance-helper does LESS THAN HALF the effort. [place] lifts, holds or supports trunk or limbs, but provides less than half the effort. 2-Substantial/Maximal Assistance-helper does MORE THAN HALF the effort. [place] lifts or holds trunk or limbs and provides more than half the effort. 7-Kcmfdnjdq-iaujkz does ALL the effort. Patient does none of the effort to complete the activity. Or, the assistance of 2 or more helpers is required for the patient to complete the activity. If activity was not attempted, code reason: 7-Patient Refused. 9-Not Applicable-not attempted and the patient did not perform the activity before the current illness, exacerbation or injury. 10-Not Attempted due to Environmental Limitations-(lack of equipment, weather restraints, etc.). 88-Not Attempted due to Medical Conditions or Safety Concerns. Exercises Supine Ex: Ankle pumps, Quad Set, Glut sets Supine Reps: 20 Assessment Current Status: Regressing, Refused Treatment Patient initially performed LE exercises as listed above. 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 PT Short Term Goals Short Term Goals Time Frame: Jan 01, 2023 Roll Left & Right: 3 Sit to lyin Lying to sitting on side of be: 3 Sit to stand: 3 Chair/inx-pq-qnmib transfer: 3 Walk 10 feet: 3 Walk 50 feet with two turns: 3 PT Usp Goals Usp Goals Roll Left & Right (QC): 6 Sit to Lying (QC): 6 Lying-Sitting on Side/Bed(QC): 6 Sit to Stand (QC): 6 Chair/Tjp-oj-Sjdqe Xfer(QC): 6 Toilet Transfer (QC): 6 Walk 10 feet (QC): 6 Walk 50ft with 2 Turns (QC): 6 Walk 150 ft (QC): 6 PT Plan Treatment/Plan Treatment Plan: Continue Plan of Care Treatment Plan: Bed Mobility, Education, Functional Activity Beatriz, Functional Strength, Gait, Safety, Therapeutic Exercise, Transfers Treatment Duration: Jan 08, 2023 Frequency: 6 times per week Estimated Hrs Per Day: .5 hour per day Time Time In: 857 Time Out: 911 DATE: Dec 29, 2022 Total Billed Treatment Time: 14 Total Billed Treatment Visit, Ex LIBERTY HAYNES PT Dec 29, 2022 09:50
--- NOTE | 2022-12-29 11:29 | Progress Note - Hospitalist ---
Subjective HPI/CC On Admission Date Seen by Provider: Dec 29, 2022 Sarabjit Wright is a 77 year old male with PMH HTN, AFib, CAD, obesity, who presented with pain. He is visiting from [place]. He was in the ER on 12/24 due to humerus fracture. He was discharged from the ER with a splint, sling, and outpatient follow up recommended next week. He has not gotten out of his chair since going back to their hotel. He has been having functional incontinence. His family brought him back because they were unable to take care of him. He reports pain all over his body. He also has localized pain in his left hip and left arm. He denies chest pain. He denies shortness of breath. He denies abdominal pain. Subjective/Events-last exam Pt reports persistent pain. He states he was able to do more functionally yesterday evening but thinks he's paying for it today and is more sore. Does not complain of one specific location for pain but just all over. Objective Exam Vital Signs Vital Signs Date Time Temp Pulse Resp B/P (MAP) Pulse Ox O2 Delivery O2 Flow Rate FiO2 12/29/22 08:16 Nasal Cannula 2.00 12/29/22 07:34 36.5 72 18 114/71 (85) 98 12/26/22 03:37 21 Capillary Refill : Less Than 3 Seconds General Appearance: No Apparent Distress Respiratory: Lungs Clear, No Respiratory Distress Cardiovascular: Regular Rate, Rhythm Neurologic/Psychiatric: Alert, Oriented x3 Results/Procedures Lab Laboratory Tests 12/29/22 05:23 Patient resulted labs reviewed. Imaging: Reviewed Imaging Report Assessment/Plan Assessment and Plan Assess & Plan/Chief Complaint Debility Humerus fracture Fall Right arm in splint and sling Ortho consulted, appreciate recs- planning for conservative management PT/OT adjusted pain regimen Continue muscle relaxer IRF eval- denied patient Social work consulted for SNF placement CK up slightly today but was more active yesterday so will trend [facility]- resolved AFib CAD Obesity Home meds as able states he had become noncompliant at home and med [facility] reviewed meds and adjusted med rec for what he is actually taking DVT prophylaxis: CALI Flannery MD Dec 29, 2022 11:29
[2022-12-29 11:56] VITALS: BP 100/64
--- NOTE | 2022-12-29 14:29 | Progress Note ---
Standard Progress Note Progress Notes/Assess & Plan Date Seen by a Provider: Dec 29, 2022 Time Seen by a Provider: 14:18 Progress/Assessment & Plan C/O diffuse pain RUE intact MCP extension radiographs--diastasis at fracture site had a lenghty discussion with the patient and re options will proceed with clam shell orthosis if sig displacement will proceed with ORIF LEÓN AVILA MD Dec 29, 2022 14:29
[2022-12-29] MEDS: ENOXAPARIN 40 MG/0.4 ML (LOVENOX) SYR SQ SCH (15:12)
[2022-12-29 15:49] VITALS: BP 120/58
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
[2022-12-29] MEDS: CYCLOBENZAPRINE 10 MG (FLEXERIL) TAB PO PRN (20:13)
[2022-12-29] MEDS: eZETimibe 10 MG (ZETIA) TABLET PO SCH (20:13)
[2022-12-29] MEDS: MELATONIN 10 MG TABLET PO SCH (20:13)
[2022-12-29 20:25] VITALS: BP 100/46
[2022-12-29 23:44] VITALS: BP 104/67
[2022-12-30] MEDS: NS IV 1000 ML 1,000 ML IV SCH ×2 (01:35→18:17)
[2022-12-30] MEDS: HYDROcodone/APAP 5 MG/325 MG (LORTAB) TAB PO PRN ×2 (01:35→08:27)
[2022-12-30 03:57] VITALS: BP 101/63
[2022-12-30 06:16] LABS: POTASSIUM 4.4 MMOL/L (3.6-5.0)
[2022-12-30 06:18] LABS: CALCIUM 8.3 MG/DL (8.5-10.1)
[2022-12-30 06:22] LABS: CREATININE SERUM 0.95 MG/DL (0.60-1.30)
--- NOTE | 2022-12-30 07:19 | Progress Note ---
Standard Progress Note Progress Notes/Assess & Plan Date Seen by a Provider: Dec 30, 2022 Time Seen by a Provider: 07:15 Progress/Assessment & Plan Patient resting comfortably but reports pain with attempted RUE motion. VSS RUE intact finger and thumb flexion and extension. Pain with ROM. Assessment: Right midshaft humerus fracture Plan: Orthoglass splint removed today and converted to clamshell humerus brace New xrays today To [place] when available FU with Dr. Butt OP Needs to Mobilize SAVANAH VALLE Dec 30, 2022 07:19
[2022-12-30 08:08] VITALS: BP 110/75
[2022-12-30] MEDS: PANTOPRAZOLE 40 MG (PROTONIX) TAB PO SCH (08:27)
[2022-12-30] MEDS: CLOPIDOGREL 75 MG (PLAVIX) TABLET PO SCH (08:28)
[2022-12-30] MEDS: GABAPENTIN 100 MG (NEURONTIN) CAP PO SCH ×3 (08:28→19:50)
--- NOTE | 2022-12-30 09:07 | Diagnostic Imaging Report ---
INDICATION: Humeral fracture. AP and lateral views of the right humerus are obtained and compared to 12/28/2022. FINDINGS: There is an oblique fracture of the proximal humeral shaft with unchanged alignment compared to the prior study and unchanged degree of displacement. There is about 3.5 cm of displacement of the dominant fragments. IMPRESSION: Unchanged oblique humeral shaft fracture with no change in the amount of displacement. Dictated by: Dictated on workstation # [id number]
--- NOTE | 2022-12-30 11:20 | Physical Therapy Daily Note ---
PT Daily Note-Current Subjective Patient continues to yell in anticipation of movement or touch. Patient's eyes are closed during entire session. RN present to assist. Pain Section J - Health Conditions 1. Rarely or not at all 2. Occasionally 3. Frequently 4. Almost constantly 8. Unable to answer Pain Effect on Sleep: 8 Pain Interference with Therapy: 8 Pain Interference w/Day-to-Day: 8 Transfers SCALE: Activities may be completed with or without assistive devices. 6-Kzxgqxpupl-hypmxmj completes the activity by him/herself with no assistance from a helper. 5-Set-up or Clean-up Assistance-helper sets up or cleans up; patient completes activity. [place] assists only prior to or following the activity. 4-Supervision or Touching Assistance-helper provides verbal cues and/or touching/steadying and/or contact guard assistance as patient completes activity. Assistance may be provided throughout the activity or intermittently. 3-Partial/Moderate Assistance-helper does LESS THAN HALF the effort. [place] lifts, holds or supports trunk or limbs, but provides less than half the effort. 2-Substantial/Maximal Assistance-helper does MORE THAN HALF the effort. [place] lifts or holds trunk or limbs and provides more than half the effort. 4-Jrgstgftb-slhiqa does ALL the effort. Patient does none of the effort to complete the activity. Or, the assistance of 2 or more helpers is required for the patient to complete the activity. If activity was not attempted, code reason: 7-Patient Refused. 9-Not Applicable-not attempted and the patient did not perform the activity before the current illness, exacerbation or injury. 10-Not Attempted due to Environmental Limitations-(lack of equipment, weather restraints, etc.). 88-Not Attempted due to Medical Conditions or Safety Concerns. Sit to Stand (QC): 1 (x 4) Chair/Qhq-fl-Frwma Xfer(QC): 1 (x 4) Exercises Seated Therapy Exercises: Long arc quads Seated Reps: 6 (PROM/patient yelling with all mobility) Assessment Patient up in recliner with needs met. Patient dependent of 3-4 with all mobility, however, demonstrated ability to utilize left UE and bilateral LE to scoot back in recliner. When brought to his attention that he just performed this activity, patient began yelling stating, "I don't want therapy. Leave me alone." Patient then observed communicating with physician and physician touching patient's bilateral LE's during her assessment with patient not yelling. Patient opened his eyes and communicated appropriately with physician as well. PT to increase activity as tolerated/allowed by patient. PT Short Term Goals Short Term Goals Time Frame: Jan 01, 2023 Roll Left & Right: 3 Sit to lyin Lying to sitting on side of be: 3 Sit to stand: 3 Chair/boi-qm-raghr transfer: 3 Walk 10 feet: 3 Walk 50 feet with two turns: 3 PT [employer] Specialist Goals [employer] Specialist Goals Roll Left & Right (QC): 6 Sit to Lying (QC): 6 Lying-Sitting on Side/Bed(QC): 6 Sit to Stand (QC): 6 Chair/Zft-bp-Pnrxr Xfer(QC): 6 Toilet Transfer (QC): 6 Walk 10 feet (QC): 6 Walk 50ft with 2 Turns (QC): 6 Walk 150 ft (QC): 6 PT Plan Treatment/Plan Treatment Plan: Continue Plan of Care Treatment Plan: Bed Mobility, Education, Functional Activity Beatriz, Functional Strength, Gait, Safety, Therapeutic Exercise, Transfers Treatment Duration: Jan 08, 2023 Frequency: 6 times per week Estimated Hrs Per Day: .5 hour per day Time Time In: 950 Time Out: 1002 DATE: Dec 30, 2022 Total Billed Treatment Time: 12 Total Billed Treatment 1 visit FA 12 min OFELIA FIELDS PT Dec 30, 2022 11:20
--- NOTE | 2022-12-30 11:38 | Occupational Ther Daily Note ---
OT Current Status-Daily Note Subjective Patient on [facility] on arrival, requires 3-4 assist for transfer and tasks. Patient yells and is verbally refusing being touched during transfer. Mental Status/Objective Patient Orientation: Person ADL-Treatment Therapy Code Descriptions/Definitions Functional [place] Measure: 0=Not Assessed/NA 4=Minimal Assistance 1=Total Assistance 5=Supervision or Setup 2=Maximal Assistance 6=Modified [place] 3=Moderate Assistance 7=Complete IndependenceSCALE: Activities may be completed with or without assistive devices. 8-Nhpyebcgkk-ffxamid completes the activity by him/herself with no assistance from a helper. 5-Set-up or Clean-up Assistance-helper sets up or cleans up; patient completes activity. [place] assists only prior to or following the activity. 4-Supervision or Touching Assistance-helper provides verbal cues and/or touching/steadying and/or contact guard assistance as patient completes activity. Assistance may be provided throughout the activity or intermittently. 3-Partial/Moderate Assistance-helper does LESS THAN HALF the effort. [place] lifts, holds or supports trunk or limbs, but provides less than half the effort. 2-Substantial/Maximal Assistance-helper does MORE THAN HALF the effort. [place] lifts or holds trunk or limbs and provides more than half the effort. 1-Tbknwjyjr-lfkotl does ALL the effort. Patient does none of the effort to complete the activity. Or, the assistance of 2 or more helpers is required for the patient to complete the activity. If activity was not attempted, code reason: 7-Patient Refused. 9-Not Applicable-not attempted and the patient did not perform the activity before the current illness, exacerbation or injury. 10-Not Attempted due to Environmental Limitations-(lack of equipment, weather restraints, etc.). 88-Not Attempted due to Medical Conditions or Safety Concerns. Lower Body Dressing (QC): 1 On/Off Footwear: 1 Toileting Hygiene (QC): 1 Toilet Transfer (QC): 1 OT positioned RUE w/o verbal outburst from Patient, and attention drawn to RUE patient then vicentenydia OUCH that hurts Education OT Patient Education: Correct positioning, Modified ADL techniques, Progress toward Goal/Update tx plan, Purpose of tx/functional activities, Reviewed precautions, Rehab process, Safety issues, Transfer techniques, Use of adapted equipment Teaching Recipient: Patient Response to Teaching: Unable to Return Demonstration, Unable to Comprehend, Reinforcement Needed OT Cosmetics Machine Operator Goals Cosmetics Machine Operator Goals Eating (QC): 6 Oral Hygiene (QC): 5 Toileting Hygiene (QC): 4 Shower/Bathe Self (QC): 4 Upper Body Dressing (QC): 4 Lower Body Dressing (QC): 4 On/Off Footwear (QC): 5 1=Demonstrate adherence to instructed precautions during ADL tasks. 2=Patient will verbalize/demonstrate understanding of assistive devices/modifications for ADL. 3=Patient will improve strength/tolerance for activity to enable patient to perform ADL's. OT Education/Plan Problem List/Assessment Assessment: Decreased Activ Tolerance, Decreased Safety Aware, Decreased UE Strength, Dependent Transfers, Impaired Cognition, Impaired Coordination, Impaired Funct Balance, Impaired Self-Care Skills, Restricted Funct UE ROM Discharge Recommendations Plan/Recommendations: Continue POC Treatment Plan/Plan of Care Patient would benefit from OT for education, treatment and training to promote independence in ADL's, mobility, safety and/or upper extremity function for ADL's. Plan of Care: ADL Retraining, Caregiver Training, Cognitive Retraining, Concurrent Therapy, Functional Mobility, Group Exercise/Act as Ind, UE Funct Exercise/Act, UE Neuromus Re-Ed/Coord Treatment Duration: Jan 01, 2023 Frequency: 3 times per week (3-5 times per week) Estimated Hrs Per Day: .25 hour per day Rehab Potential: Fair Time Start Time: 09:50 Stop Time: 10:05 DATE: Dec 30, 2022 Total Time Billed (hr/min): 15 Billed Treatment Time ADL 15 min FAYE ODOM OT Dec 30, 2022 11:38
[2022-12-30 11:47] VITALS: BP 117/81
--- NOTE | 2022-12-30 13:40 | Progress Note - Hospitalist ---
Subjective HPI/CC On Admission Date Seen by Provider: Dec 30, 2022 Sarabjit Wright is a 77 year old male with PMH HTN, AFib, CAD, obesity, who presented with pain. He is visiting from [place]. He was in the ER on 12/24 due to humerus fracture. He was discharged from the ER with a splint, sling, and outpatient follow up recommended next week. He has not gotten out of his chair since going back to their hotel. He has been having functional incontinence. His family brought him back because they were unable to take care of him. He reports pain all over his body. He also has localized pain in his left hip and left arm. He denies chest pain. He denies shortness of breath. He denies abdominal pain. Subjective/Events-last exam Pt reports having persistent pain. States it's unbearable and hurts any time he is touched. Worked with PT this morning but took 4 people to get to chair. Discussed plan to adjust pain medicine. Called and updated as well. Objective Exam Vital Signs Vital Signs Date Time Temp Pulse Resp B/P (MAP) Pulse Ox O2 Delivery O2 Flow Rate FiO2 12/30/22 11:47 36.4 72 18 117/81 (93) 98 Nasal Cannula 2.00 12/26/22 03:37 21 Capillary Refill : Less Than 3 Seconds General Appearance: No Apparent Distress Cardiovascular: Regular Rate, Rhythm, No Murmur Gastrointestinal: Normal Bowel Sounds, Soft Neurologic/Psychiatric: Alert, Oriented x3 Results/Procedures Lab Laboratory Tests 12/30/22 05:38 Patient resulted labs reviewed. Imaging: Reviewed Imaging Report Assessment/Plan Assessment and Plan Assess & Plan/Chief Complaint Debility Humerus fracture Fall Right arm in splint and sling Ortho consulted, appreciate recs- planning for conservative management PT/OT adjusted pain regimen- increased hydrocodone dose Continue muscle relaxer IRF eval- denied patient Social work consulted for SNF placement- referrals sent CK down today [facility]- resolved AFib CAD Obesity Home meds as able states he had become noncompliant at home and med tech reviewed meds and adjusted med rec for what he is actually taking DVT prophylaxis: CALI Flannery MD Dec 30, 2022 13:40
[2022-12-30] MEDS: HYDROcodone/APAP 7.5 MG/325 MG (LORTAB, LORCET PLUS) TABLET PO PRN ×2 (13:51→19:50)
[2022-12-30] MEDS: ENOXAPARIN 40 MG/0.4 ML (LOVENOX) SYR SQ SCH (13:52)
[2022-12-30 15:59] VITALS: BP 124/84
[2022-12-30 19:25] VITALS: BP 108/70
[2022-12-30] MEDS: MELATONIN 10 MG TABLET PO SCH (19:50)
[2022-12-30] MEDS: eZETimibe 10 MG (ZETIA) TABLET PO SCH (19:50)
[2022-12-31] VITALS: BP 97/44
[2022-12-31] MEDS: NS IV 1000 ML 1,000 ML IV SCH ×2 (00:43→18:33)
[2022-12-31] MEDS: HYDROcodone/APAP 7.5 MG/325 MG (LORTAB, LORCET PLUS) TABLET PO PRN ×3 (03:37→19:55)
[2022-12-31 04:00] VITALS: BP 113/56
[2022-12-31 08:50] VITALS: BP 108/67
[2022-12-31] MEDS: GABAPENTIN 100 MG (NEURONTIN) CAP PO SCH ×3 (08:55→19:18)
[2022-12-31] MEDS: CLOPIDOGREL 75 MG (PLAVIX) TABLET PO SCH (08:55)
[2022-12-31] MEDS: PANTOPRAZOLE 40 MG (PROTONIX) TAB PO SCH (08:55)
--- NOTE | 2022-12-31 10:25 | Progress Note ---
Standard Progress Note Progress Notes/Assess & Plan Date Seen by a Provider: Dec 31, 2022 Time Seen by a Provider: 10:23 Progress/Assessment & Plan Patient resting comfortably but reports pain with attempted RUE motion. VSS RUE intact finger and thumb flexion and extension. Pain with ROM. Assessment: Right midshaft humerus fracture Plan: clamshell humerus brace To [place] when available FU with Dr. Butt OP Needs to Mobilize SAVANAH VALLE Dec 31, 2022 10:25
--- NOTE | 2022-12-31 10:48 | Physical Therapy Progress Note ---
Therapy Progress Note Patient in bed. PT attempted to have patient perform exercises. Patient's right LE was off the bed. PT did place hands under right knee and ankle asking patient to bring right LE up to the bed. Patient yell at the top of his lungs, "STOP! IT HURTS!" During this time patient was resisting with significant force. Once right LE was on the bed, This PT asked patient to begin to bed his knee (right or left). Patient yelled, "IT WILL BE SLOW. DON'T TOUCH ME." This PT was standing aside just giving verbal cues. Patient began to move and then yelled, "I'M DONE. LEAVE ME ALONE. THIS IS MY THIRD REFUSAL AND I WANT YOU OUT OF MY ROOM!" PT then exited room after patient bed was repositioned and patient covered with blankets. Physician notified. 1 ref OFELIA FIELDS PT Dec 31, 2022 10:48
--- NOTE | 2022-12-31 10:59 | Occ Therapy Progress Note ---
Therapy Progress Note OT entered room to assist w/ therapy treatment and perform ADLS w/ Patient. OT introduces self and purpose. Patient begins yelling "I'M DONE. LEAVE ME ALONE. THIS IS MY THIRD REFUSAL AND I WANT YOU OUT OF MY ROOM!" OT /PT then exited room after patient bed was repositioned and patient covered with blankets. Physician notified. FAYE ODOM OT Dec 31, 2022 10:59
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
[2022-12-31] MEDS: ENOXAPARIN 40 MG/0.4 ML (LOVENOX) SYR SQ SCH (14:11)
--- NOTE | 2022-12-31 14:37 | Physical Therapy Progress Note ---
Therapy Progress Note Attempted to treat patient for PT daily treatment. Discussed plan of care with physician and treating nurse. Discussed plan with patient. Nurse reports his pain medication is at the appropriate time and will administer soon. This PT went to discuss upcoming treatment with patient. He was in agreement to working with this PT ~15-30 minutes after pain medication was administered to give it time to take effect. This therapist returned at the agreed upon time and the nurse reported she was running a few minutes behind and was just not administering the patients pain medication. After being in the room a few minutes the nurse exited the room and reports the patient refused his pain pill. This therapist reported to treating physician and will attempt treatment again tomorrow if patient is willing to participate. LIBERTY HAYNES PT Dec 31, 2022 14:37
[2022-12-31 16:00] VITALS: BP 105/66
[2022-12-31] MEDS: MELATONIN 10 MG TABLET PO SCH (19:18)
[2022-12-31] MEDS: eZETimibe 10 MG (ZETIA) TABLET PO SCH (19:18)
[2022-12-31 23:05] VITALS: BP 89/38
[2022-12-31] MEDS: CYCLOBENZAPRINE 10 MG (FLEXERIL) TAB PO PRN (23:21)
[2023-01-01 03:04] VITALS: BP 90/58
[2023-01-01] MEDS: HYDROcodone/APAP 7.5 MG/325 MG (LORTAB, LORCET PLUS) TABLET PO PRN ×3 (03:04→19:36)
[2023-01-01] MEDS: NS IV 1000 ML 1,000 ML IV SCH ×2 (06:37→20:37)
[2023-01-01 08:05] VITALS: BP 101/52
[2023-01-01] MEDS: GABAPENTIN 100 MG (NEURONTIN) CAP PO SCH ×3 (08:50→19:35)
[2023-01-01] MEDS: CLOPIDOGREL 75 MG (PLAVIX) TABLET PO SCH (08:50)
[2023-01-01] MEDS: PANTOPRAZOLE 40 MG (PROTONIX) TAB PO SCH (08:50)
--- NOTE | 2023-01-01 12:16 | Physical Therapy Daily Note ---
PT Daily Note-Current Subjective Pt reluctantly agreeable to participate in therapy, "only if you move very slowly!" Pain Section J - Health Conditions 1. Rarely or not at all 2. Occasionally 3. Frequently 4. Almost constantly 8. Unable to answer Pain Effect on Sleep: 8 Pain Interference with Therapy: 8 Pain Interference w/Day-to-Day: 8 Appearance Following session, pt supine in bed with wedge pillow placed on R side, rolling him to the L. present with pt at bedside. All needs met Mental Status Patient Orientation: Person, Situation Attachments: Duque Catheter Transfers SCALE: Activities may be completed with or without assistive devices. 0-Rhibetmyhx-ctvcrqd completes the activity by him/herself with no assistance from a helper. 5-Set-up or Clean-up Assistance-helper sets up or cleans up; patient completes activity. [place] assists only prior to or following the activity. 4-Supervision or Touching Assistance-helper provides verbal cues and/or touching/steadying and/or contact guard assistance as patient completes activit y. Assistance may be provided throughout the activity or intermittently. 3-Partial/Moderate Assistance-helper does LESS THAN HALF the effort. [place] lifts, holds or supports trunk or limbs, but provides less than half the effort. 2-Substantial/Maximal Assistance-helper does MORE THAN HALF the effort. [place] lifts or holds trunk or limbs and provides more than half the effort. 4-Wobhnhcjw-krrybp does ALL the effort. Patient does none of the effort to complete the activity. Or, the assistance of 2 or more helpers is required for the patient to complete the activity. If activity was not attempted, code reason: 7-Patient Refused. 9-Not Applicable-not attempted and the patient did not perform the activity before the current illness, exacerbation or injury. 10-Not Attempted due to Environmental Limitations-(lack of equipment, weather restraints, etc.). 88-Not Attempted due to Medical Conditions or Safety Concerns. Roll Left & Right (QC): 2 Treatments Pt has decreased A/PROM in L shoulder, able to get to approx 90 degrees before pt has significant increased pain. BLE has decreased hip motion in all planes. Pt requires max A x 2 to roll to the L. PROM to L shoulder and BLE x 15' Assessment Current Status: Poor Progress Pt continues to be very limited by pain. requires max A x 2 to roll, and has decreased A/PROM in BLEs and B shoulders. PT Short Term Goals Short Term Goals Time Frame: Jan 01, 2023 Roll Left & Right: 3 Sit to lyin Lying to sitting on side of be: 3 Sit to stand: 3 Chair/ucv-fh-ksgbo transfer: 3 Walk 10 feet: 3 Walk 50 feet with two turns: 3 PT [facility] Goals [facility] Goals Roll Left & Right (QC): 6 Sit to Lying (QC): 6 Lying-Sitting on Side/Bed(QC): 6 Sit to Stand (QC): 6 Chair/Xyw-ns-Snhwn Xfer(QC): 6 Toilet Transfer (QC): 6 Walk 10 feet (QC): 6 Walk 50ft with 2 Turns (QC): 6 Walk 150 ft (QC): 6 PT Plan Problem List Problem List: Activity Tolerance, Functional Strength, Safety, Balance, Gait, Transfer, Bed Mobility, ROM Treatment/Plan Treatment Plan: Continue Plan of Care Treatment Plan: Bed Mobility, Education, Functional Activity Beatriz, Functional Strength, Gait, Safety, Therapeutic Exercise, Transfers Treatment Duration: Jan 08, 2023 Frequency: 6 times per week Estimated Hrs Per Day: .5 hour per day Time Time In: 1125 Time Out: 1145 DATE: Jan 01, 2023 Total Billed Treatment Time: 20 Total Billed Treatment 1 visit FA (20') MONISHA LOVE PT Jan 01, 2023 12:16
--- NOTE | 2023-01-01 14:07 | Progress Note - Hospitalist ---
Subjective HPI/CC On Admission Date Seen by Provider: Jan 01, 2023 Sarabjit Wright is a 77 year old male with PMH HTN, AFib, CAD, obesity, who presented with pain. He is visiting from [place]. He was in the ER on 12/24 due to humerus fracture. He was discharged from the ER with a splint, sling, and outpatient follow up recommended next week. He has not gotten out of his chair since going back to their hotel. He has been having functional incontinence. His family brought him back because they were unable to take care of him. He reports pain all over his body. He also has localized pain in his left hip and left arm. He denies chest pain. He denies shortness of breath. He denies abdominal pain. Subjective/Events-last exam Patient reports having a very bad night. He states that he worked with the aid again "very slowly" and was able to do more than he had but then overnight he states that people work too quickly with him. He has declined nursing offers to turn him. states he is doing hourly range of motion exercises on his own and I-S though. We discussed his continued declination of services with physical therapy and the importance of working with them in addition to his own exercises to maximize progress. He expresses understanding and agrees to work with physical therapy. Objective Exam Vital Signs Vital Signs Date Time Temp Pulse Resp B/P (MAP) Pulse Ox O2 Delivery O2 Flow Rate FiO2 01/01/23 09:04 97 NIV CPAP 2.00 01/01/23 08:05 36.3 69 17 101/52 (68) 12/26/22 03:37 21 Capillary Refill : Less Than 3 Seconds General Appearance: No Apparent Distress, Chronically ill, Obese Respiratory: Lungs Clear, No Accessory Muscle Use, Other (on 2lpm) Cardiovascular: Regular Rate, Rhythm, No Murmur Gastrointestinal: Normal Bowel Sounds Neurologic/Psychiatric: Alert, Oriented x3 Results/Procedures Lab Patient resulted labs reviewed. Imaging: Reviewed Imaging Report Assessment/Plan Assessment and Plan Assess & Plan/Chief Complaint Debility Humerus fracture Fall Ortho replaced splint 12/30 Ortho consulted, appreciate recs- planning for conservative management PT/OT- discussed with PT who will see patient today Continue current pain regimen Continue muscle relaxer IRF eval- denied patient Social work consulted for SNF placement- referrals sent Patient has been declining offers of turns [facility]- resolved AFib CAD Obesity Home meds as able states he had become noncompliant at home and med tech reviewed meds and adjusted med rec for what he is actually taking DVT prophylaxis: CALI Flannery MD Jan 01, 2023 14:07
[2023-01-01] MEDS: ENOXAPARIN 40 MG/0.4 ML (LOVENOX) SYR SQ SCH (14:37)
[2023-01-01] MEDS: CYCLOBENZAPRINE 10 MG (FLEXERIL) TAB PO PRN (16:24)
[2023-01-01 16:33] VITALS: BP 114/71
[2023-01-01] MEDS: eZETimibe 10 MG (ZETIA) TABLET PO SCH (19:35)
[2023-01-01] MEDS: MELATONIN 10 MG TABLET PO SCH (19:35)
[2023-01-01] MEDS: LORazepam 0.5 MG (ATIVAN) TABLET PO PRN (20:42)
[2023-01-01 23:29] VITALS: BP 142/73
[2023-01-02] MEDS: HYDROcodone/APAP 7.5 MG/325 MG (LORTAB, LORCET PLUS) TABLET PO PRN ×4 (05:55→21:19)
[2023-01-02] MEDS: LORazepam 0.5 MG (ATIVAN) TABLET PO PRN (07:28)
[2023-01-02 08:00] VITALS: BP 116/53
[2023-01-02] MEDS: PANTOPRAZOLE 40 MG (PROTONIX) TAB PO SCH (08:52)
[2023-01-02] MEDS: GABAPENTIN 100 MG (NEURONTIN) CAP PO SCH ×3 (08:52→16:37)
[2023-01-02] MEDS: CLOPIDOGREL 75 MG (PLAVIX) TABLET PO SCH (08:52)
[2023-01-02] MEDS: NS IV 1000 ML 1,000 ML IV SCH ×2 (08:52→22:10)
--- NOTE | 2023-01-02 12:26 | Progress Note - Hospitalist ---
Subjective HPI/CC On Admission Date Seen by Provider: Jan 02, 2023 Sarabjit Wright is a 77 year old male with PMH HTN, AFib, CAD, obesity, who presented with pain. He is visiting from [place]. He was in the ER on 12/24 due to humerus fracture. He was discharged from the ER with a splint, sling, and outpatient follow up recommended next week. He has not gotten out of his chair since going back to their hotel. He has been having functional incontinence. His family brought him back because they were unable to take care of him. He reports pain all over his body. He also has localized pain in his left hip and left arm. He denies chest pain. He denies shortness of breath. He denies abdominal pain. Subjective/Events-last exam Pt reports doing ok today. No complaints. Pain controlled with current regimen. Worked with PT yesterday. Continues to do hourly ROM exercises in bed. Objective Exam Vital Signs Vital Signs Date Time Temp Pulse Resp B/P (MAP) Pulse Ox O2 Delivery O2 Flow Rate FiO2 01/02/23 08:18 92 NIV CPAP 2.00 01/01/23 23:29 36.5 73 14 142/73 (96) Capillary Refill : Less Than 3 Seconds General Appearance: No Apparent Distress, Chronically ill, Obese Respiratory: Lungs Clear, No Respiratory Distress Cardiovascular: Regular Rate, Rhythm, No Murmur Neurologic/Psychiatric: Alert, Oriented x3 Results/Procedures Lab Patient resulted labs reviewed. Imaging: Reviewed Imaging Report Assessment/Plan Assessment and Plan Assess & Plan/Chief Complaint Debility Humerus fracture Fall Ortho replaced splint 12/30 Ortho consulted, appreciate recs- planning for conservative management PT/OT- worked with PT yesterday Continue current pain regimen Continue muscle relaxer IRF eval- denied patient Social work consulted for SNF placement- referrals sent- hopefully DC to [facility] tomorrow [facility]- resolved AFib CAD Obesity Home meds as able states he had become noncompliant at home and [employer] reviewed meds and adjusted med rec for what he is actually taking DVT prophylaxis: CALI Flannery MD Jan 02, 2023 12:26
[2023-01-02] MEDS: ENOXAPARIN 40 MG/0.4 ML (LOVENOX) SYR SQ SCH (15:06)
[2023-01-02 16:16] VITALS: BP 127/71
[2023-01-02] MEDS: eZETimibe 10 MG (ZETIA) TABLET PO SCH (20:30)
[2023-01-02] MEDS: MELATONIN 10 MG TABLET PO SCH (20:31)
[2023-01-02 23:51] VITALS: BP 122/70
[2023-01-03] MEDS: CYCLOBENZAPRINE 10 MG (FLEXERIL) TAB PO PRN (02:11)
[2023-01-03] MEDS: HYDROcodone/APAP 7.5 MG/325 MG (LORTAB, LORCET PLUS) TABLET PO PRN ×3 (03:30→17:17)
[2023-01-03 07:40] VITALS: BP 150/70
--- NOTE | 2023-01-03 08:00 | Progress Note ---
Standard Progress Note Progress Notes/Assess & Plan Date Seen by a Provider: Jan 03, 2023 Time Seen by a Provider: 07:53 Progress/Assessment & Plan C/O diffuse pain RUE intact MCP extension radiographs--diastasis at fracture site had a lenghty discussion with the patient and re options will proceed with clam shell orthosis if sig displacement will proceed with ORIF Final Diagnosis feeling better radiographs in orthosis reveal continued displacement RUE NVI distally IMP--persistent displacement right humerus plan==discussed at length with patient and have elected to proceed with ORIF right humerus on tuesday LEÓN AVILA MD Jan 03, 2023 08:00
[2023-01-03] MEDS: PANTOPRAZOLE 40 MG (PROTONIX) TAB PO SCH (08:38)
[2023-01-03] MEDS: CLOPIDOGREL 75 MG (PLAVIX) TABLET PO SCH (08:38)
[2023-01-03] MEDS: GABAPENTIN 100 MG (NEURONTIN) CAP PO SCH (08:38)
[2023-01-03] MEDS: NS IV 1000 ML 1,000 ML IV SCH (11:21)
--- NOTE | 2023-01-03 11:55 | Physical Therapy Daily Note ---
PT Daily Note-Current Subjective Pt found lying in bed /c spouse present upon entry. Pt agreed to PT but requested treatment to be completed slowly. Pain reported in BLE/BUEs. Does not rate pain. Pain Section J - Health Conditions 1. Rarely or not at all 2. Occasionally 3. Frequently 4. Almost constantly 8. Unable to answer Pain Effect on Sleep: 8 Pain Interference with Therapy: 8 Pain Interference w/Day-to-Day: 8 Mental Status Patient Orientation: Person Transfers SCALE: Activities may be completed with or without assistive devices. 8-Mzyhwibwak-yooxlnh completes the activity by him/herself with no assistance from a helper. 5-Set-up or Clean-up Assistance-helper sets up or cleans up; patient completes activity. [place] assists only prior to or following the activity. 4-Supervision or Touching Assistance-helper provides verbal cues and/or touching/steadying and/or contact guard assistance as patient completes activity. Assistance may be provided throughout the activity or intermittently. 3-Partial/Moderate Assistance-helper does LESS THAN HALF the effort. [place] lifts, holds or supports trunk or limbs, but provides less than half the effort. 2-Substantial/Maximal Assistance-helper does MORE THAN HALF the effort. [place] lifts or holds trunk or limbs and provides more than half the effort. 1-Wsogbkcph-ehlvgq does ALL the effort. Patient does none of the effort to complete the activity. Or, the assistance of 2 or more helpers is required for the patient to complete the activity. If activity was not attempted, code reason: 7-Patient Refused. 9-Not Applicable-not attempted and the patient did not perform the activity before the current illness, exacerbation or injury. 10-Not Attempted due to Environmental Limitations-(lack of equipment, weather restraints, etc.). 88-Not Attempted due to Medical Conditions or Safety Concerns. Treatments AAROM BLE Assessment Current Status: Poor Progress SLRs /c AAROM completed. Lifting assistance provided very slowly per pt request. Pt BLE ROM limited due to reported pain. During SLR PROM pt yells out in pain. Displays better ROM on R side versus L. Continue to progress per POC to improve ROM, strength, and functional ability. PT Short Term Goals Short Term Goals Time Frame: Jan 01, 2023 Roll Left & Right: 3 Sit to lyin Lying to sitting on side of be: 3 Sit to stand: 3 Chair/ond-zx-ciqrd transfer: 3 Walk 10 feet: 3 Walk 50 feet with two turns: 3 PT Office Equipment Technician Goals Office Equipment Technician Goals Roll Left & Right (QC): 6 Sit to Lying (QC): 6 Lying-Sitting on Side/Bed(QC): 6 Sit to Stand (QC): 6 Chair/Udf-bu-Fgpnq Xfer(QC): 6 Toilet Transfer (QC): 6 Walk 10 feet (QC): 6 Walk 50ft with 2 Turns (QC): 6 Walk 150 ft (QC): 6 PT Plan Treatment/Plan Treatment Plan: Continue Plan of Care Treatment Plan: Bed Mobility, Education, Functional Activity [place], Functional Strength, Gait, Safety, Therapeutic Exercise, Transfers Treatment Duration: Jan 08, 2023 Frequency: 6 times per week Estimated Hrs Per Day: .5 hour per day Time Time In: 1026 Time Out: 1036 DATE: Jan 03, 2023 Total Billed Treatment Time: 10 Total Billed Treatment 1 visit EX x 1 YESSICA DESHPANDE REMELT SUGAR BOILER Jan 03, 2023 11:55
--- NOTE | 2023-01-03 14:07 | Occupational Ther Daily Note ---
OT Current Status-Daily Note Subjective Pt alert, lying in bed. Pain meds given ~1100, per nrsg notes. Pt's in room. Pt agrees to therapy. Pt stated that he is apologizing for yelling at staff. Mental Status/Objective Patient Orientation: Person, Place, Time, Situation Attachments: Duque Catheter, IV ADL-Treatment Therapy Code Descriptions/Definitions Functional [place] Measure: 0=Not Assessed/NA 4=Minimal Assistance 1=Total Assistance 5=Supervision or Setup 2=Maximal Assistance 6=Modified [place] 3=Moderate Assistance 7=Complete IndependenceSCALE: Activities may be completed with or without assistive devices. 7-Kpyhbfyrjd-gptyejv completes the activity by him/herself with no assistance from a helper. 5-Set-up or Clean-up Assistance-helper sets up or cleans up; patient completes activity. [place] assists only prior to or following the activity. 4-Supervision or Touching Assistance-helper provides verbal cues and/or touching/steadying and/or contact guard assistance as patient completes activity. Assistance may be provided throughout the activity or intermittently. 3-Partial/Moderate Assistance-helper does LESS THAN HALF the effort. [place] lifts, holds or supports trunk or limbs, but provides less than half the effort. 2-Substantial/Maximal Assistance-helper does MORE THAN HALF the effort. [place] lifts or holds trunk or limbs and provides more than half the effort. 8-Dajmjpiqt-hfmydf does ALL the effort. Patient does none of the effort to complete the activity. Or, the assistance of 2 or more helpers is required for the patient to complete the activity. If activity was not attempted, code reason: 7-Patient Refused. 9-Not Applicable-not attempted and the patient did not perform the activity before the current illness, exacerbation or injury. 10-Not Attempted due to Environmental Limitations-(lack of equipment, weather restraints, etc.). 88-Not Attempted due to Medical Conditions or Safety Concerns. Other Treatment Limited L UE shldr ROM, AAROM and stretch to L shldr to increase independence for daily functional tasks, ~150* flexion. APROM to R fingers, wrist and forearm, 1 set 10 reps to increase ROM and decrease edema. Edema massage to R hand/fingers, discussed compression glove with OTR/L. After session, pt lying in bed with call light/phone in reach. present in room. All needs met in room. OT Skilled Nursing Goals Infrastructure Manager Goals Eating (QC): 6 Oral Hygiene (QC): 5 Toileting Hygiene (QC): 4 Shower/Bathe Self (QC): 4 Upper Body Dressing (QC): 4 Lower Body Dressing (QC): 4 On/Off Footwear (QC): 5 1=Demonstrate adherence to instructed precautions during ADL tasks. 2=Patient will verbalize/demonstrate understanding of assistive devices/modifications for ADL. 3=Patient will improve strength/tolerance for activity to enable patient to perform ADL's. OT Education/Plan Problem List/Assessment Assessment: Decreased Activ Tolerance, Decreased UE Strength, Impaired Bed Mobility, Impaired Self-Care Skills, Restricted Funct UE ROM Discharge Recommendations Plan/Recommendations: Continue POC Treatment Plan/Plan of Care Patient would benefit from OT for education, treatment and training to promote independence in ADL's, mobility, safety and/or upper extremity function for ADL's. Plan of Care: ADL Retraining, Caregiver Training, Cognitive Retraining, Concurrent Therapy, Functional Mobility, Group Exercise/Act as Ind, UE Funct Exercise/Act, UE Neuromus Re-Ed/Coord Treatment Duration: Jan 01, 2023 Frequency: 3 times per week (3-5 times per week) Estimated Hrs Per Day: .25 hour per day Rehab Potential: Fair Time Start Time: 13:20 Stop Time: 13:40 DATE: Jan 03, 2023 Total Time Billed (hr/min): 20 Billed Treatment Time 1 visit-EX 1 (20 min) ZAFAR ROGERS Jan 03, 2023 14:07
[2023-01-03] MEDS: ENOXAPARIN 40 MG/0.4 ML (LOVENOX) SYR SQ SCH (15:13)
[2023-01-03 16:36] VITALS: BP 112/65
--- NOTE | 2023-01-03 16:46 | Progress Note - Hospitalist ---
Subjective HPI/CC On Admission Date Seen by Provider: Jan 03, 2023 Time Seen by Provider: 10:00 Sarabjit Wright is a 77 year old male with PMH HTN, AFib, CAD, obesity, who presented with pain. He is visiting from [place]. He was in the ER on 12/24 due to humerus fracture. He was discharged from the ER with a splint, sling, and outpatient follow up recommended next week. He has not gotten out of his chair since going back to their hotel. He has been having functional incontinence. His family brought him back because they were unable to take care of him. He reports pain all over his body. He also has localized pain in his left hip and left arm. He denies chest pain. He denies shortness of breath. He denies abdominal pain. Subjective/Events-last exam He is sleeping in bed. He denies pain at this time. He has no complaints. His is present and the plan was discussed. Objective Exam Vital Signs Vital Signs Date Time Temp Pulse Resp B/P (MAP) Pulse Ox O2 Delivery O2 Flow Rate FiO2 01/03/23 16:36 36.2 69 18 112/65 (81) 97 Nasal Cannula 2.00 Capillary Refill : Less Than 3 Seconds General Appearance: No Apparent Distress, Obese Respiratory: Lungs Clear, No Respiratory Distress Cardiovascular: Regular Rate, Rhythm, No Murmur Gastrointestinal: Normal Bowel Sounds, Soft Extremity: No Pedal Edema; No Inflammation Neurologic/Psychiatric: Alert, Normal Mood/Affect Skin: Normal Color, Warm/Dry Results/Procedures Lab Patient resulted labs reviewed. Imaging: Reviewed Imaging Report Assessment/Plan Assessment and Plan Assess & Plan/Chief Complaint Debility Humerus fracture Fall Ortho following, Dr. Butt Planning for ORIF Tuesday PT/OT Continue pain regimen Hold muscle relaxer IRF denied SW assisting with discharge, planning for [facility] likely [facility]- resolved AFib CAD Obesity Home meds as able states he had become noncompliant at home and [facility] reviewed meds and adjusted med rec for what he is actually taking DVT prophylaxis: Lovenox Diagnosis/Problems Diagnosis/Problems (1) Debility Status: Acute (2) Humerus fracture Status: Acute Qualifiers: Encounter type: subsequent encounter Humerus Location: proximal Fracture type: closed Fracture alignment: displaced Laterality: right (3) Fall Status: Acute Qualifiers: Encounter type: subsequent encounter Qualified Codes: W19.XXXD - Unspecified fall, subsequent encounter (4) Obesity (5) Left shoulder pain Status: Acute Qualifiers: Chronicity: acute Qualified Codes: M25.512 - Pain in left shoulder (6) Left hip pain Status: Acute (7) [facility] (acute kidney injury) Status: Resolved Resolution Date/Time: 01/03/23 @ 16:46 BETHANY FREDERICK MD Jan 03, 2023 16:46
[2023-01-03] MEDS: eZETimibe 10 MG (ZETIA) TABLET PO SCH (22:14)
[2023-01-03] MEDS: MELATONIN 10 MG TABLET PO SCH (22:14)
[2023-01-03 23:44] VITALS: BP 115/69
[2023-01-04] MEDS: NS IV 1000 ML 1,000 ML IV SCH ×2 (00:48→15:07)
[2023-01-04 08:25] LABS: BASOPHILS # (AUTO) 0.1 10^3/uL (0.0-0.1); BASOPHILS % (AUTO) 1 % (0-10); EOSINOPHILS # (AUTO) 0.3 10^3/uL (0.0-0.3); EOSINOPHILS % (AUTO) 4 % (0-10); HEMATOCRIT 36 % (40-54); LYMPHOCYTES # (AUTO) 0.7 10^3/uL (1.0-4.0); LYMPHOCYTES % (AUTO) 9 % (12-44); MEAN CORPUSCULAR HEMOGLOBIN 29 pg (25-34); MEAN CORPUSCULAR HGB CONC 31 g/dL (32-36); MEAN CORPUSCULAR VOLUME 93 fL (80-99); MEAN PLATELET VOLUME 9.8 fL (9.0-12.2); MONOCYTES # (AUTO) 0.7 10^3/uL (0.0-1.0); MONOCYTES % (AUTO) 9 % (0-12); NEUTROPHILS # (AUTO) 5.8 10^3/uL (1.8-7.8); NEUTROPHILS % (AUTO) 76 % (42-75); PLATELET COUNT 244 10^3/uL (130-400); WHITE BLOOD COUNT 7.6 10^3/uL (4.3-11.0)
[2023-01-04 08:31] LABS: POTASSIUM 4.5 MMOL/L (3.6-5.0)
[2023-01-04 08:32] LABS: CALCIUM 8.6 MG/DL (8.5-10.1)
[2023-01-04 08:37] LABS: CREATININE SERUM 0.83 MG/DL (0.60-1.30)
[2023-01-04] MEDS: CLOPIDOGREL 75 MG (PLAVIX) TABLET PO SCH (08:45)
[2023-01-04] MEDS: ENOXAPARIN 40 MG/0.4 ML (LOVENOX) SYR SQ SCH (08:45)
[2023-01-04] MEDS: HYDROcodone/APAP 7.5 MG/325 MG (LORTAB, LORCET PLUS) TABLET PO PRN ×3 (08:47→23:35)
[2023-01-04] MEDS: PANTOPRAZOLE 40 MG (PROTONIX) TAB PO SCH (08:47)
[2023-01-04 08:52] VITALS: BP 150/93
[2023-01-04] MEDS ORDERED: BISACODYL 5 MG (DULCOLAX) TABLET PO ONE (09:00)
--- NOTE | 2023-01-04 09:08 | Physical Therapy Daily Note ---
PT Daily Note-Current Subjective Pt asleep in bed with CPAP on upon arrival to room, reluctantly agreeable to PT treatment. Pts present in room Pain Section J - Health Conditions 1. Rarely or not at all 2. Occasionally 3. Frequently 4. Almost constantly 8. Unable to answer Pain Effect on Sleep: 8 Pain Interference with Therapy: 8 Pain Interference w/Day-to-Day: 8 Appearance Following session, pt asleep in bed with CPAP on, call light and tray table within reach. All needs met, present at bedside Mental Status Patient Orientation: Person, Place, Time, Situation Attachments: Duque Catheter Transfers SCALE: Activities may be completed with or without assistive devices. 3-Jjgypaukzc-jslqlni completes the activity by him/herself with no assistance from a helper. 5-Set-up or Clean-up Assistance-helper sets up or cleans up; patient completes activity. [place] assists only prior to or following the activity. 4-Supervision or Touching Assistance-helper provides verbal cues and/or touching/steadying and/or contact guard assistance as patient completes activity. Assistance may be provided throughout the activity or intermittently. 3-Partial/Moderate Assistance-helper does LESS THAN HALF the effort. [place] lifts, holds or supports trunk or limbs, but provides less than half the effort. 2-Substantial/Maximal Assistance-helper does MORE THAN HALF the effort. [place] lifts or holds trunk or limbs and provides more than half the effort. 2-Pfhohiyli-xorjqr does ALL the effort. Patient does none of the effort to complete the activity. Or, the assistance of 2 or more helpers is required for the patient to complete the activity. If activity was not attempted, code reason: 7-Patient Refused. 9-Not Applicable-not attempted and the patient did not perform the activity before the current illness, exacerbation or injury. 10-Not Attempted due to Environmental Limitations-(lack of equipment, weather restraints, etc.). 88-Not Attempted due to Medical Conditions or Safety Concerns. Exercises Supine Ex: Ankle pumps, Quad Set, Glut sets, Heel Slides, Straight leg raise (20), Hip abd/add Assessment Current Status: Fair Progress Pt participated in bed exercises, did not have any episodes of yelling out in pain this date. PT Short Term Goals Short Term Goals Time Frame: Jan 01, 2023 Roll Left & Right: 3 Sit to lyin Lying to sitting on side of be: 3 Sit to stand: 3 Chair/fgx-rq-voomi transfer: 3 Walk 10 feet: 3 Walk 50 feet with two turns: 3 PT Fire Management Specialist Goals Detention Goals Roll Left & Right (QC): 6 Sit to Lying (QC): 6 Lying-Sitting on Side/Bed(QC): 6 Sit to Stand (QC): 6 Chair/[place]ap-na-Xpukp Xfer(QC): 6 Toilet Transfer (QC): 6 Walk 10 feet (QC): 6 Walk 50ft with 2 Turns (QC): 6 Walk 150 ft (QC): 6 PT Plan Problem List Problem List: Activity Tolerance, Functional Strength, Safety, Balance, Gait, Transfer, Bed Mobility, ROM Treatment/Plan Treatment Plan: Continue Plan of Care Treatment Plan: Bed Mobility, Education, Functional Activity Beatriz, Functional Strength, Gait, Safety, Therapeutic Exercise, Transfers Treatment Duration: Jan 08, 2023 Frequency: 6 times per week Estimated Hrs Per Day: .5 hour per day Time Time In: 817 Time Out: 827 DATE: Jan 04, 2023 Total Billed Treatment Time: 10 Total Billed Treatment 1 visit Ex (10') MONISHA LOVE PT Jan 04, 2023 09:08
--- NOTE | 2023-01-04 10:35 | Progress Note ---
Standard Progress Note Progress Notes/Assess & Plan Date Seen by a Provider: Jan 04, 2023 Time Seen by a Provider: 10:22 Progress/Assessment & Plan C/O diffuse pain RUE intact MCP extension radiographs--diastasis at fracture site had a lenghty discussion with the patient and re options will proceed with clam shell orthosis if sig displacement will proceed with ORIF Final Diagnosis no complaints RUE in splint NVI distally imp--R humerus fracture plan for ORIF tomorrow LEÓN AVILA MD Jan 04, 2023 10:35
--- NOTE | 2023-01-04 15:34 | Progress Note - Hospitalist ---
Subjective HPI/CC On Admission Date Seen by Provider: Jan 04, 2023 Time Seen by Provider: 10:50 Sarabjit Wright is a 77 year old male with PMH HTN, AFib, CAD, obesity, who presented with pain. He is visiting from [place]. He was in the ER on 12/24 due to humerus fracture. He was discharged from the ER with a splint, sling, and outpatient follow up recommended next week. He has not gotten out of his chair since going back to their hotel. He has been having functional incontinence. His family brought him back because they were unable to take care of him. He reports pain all over his body. He also has localized pain in his left hip and left arm. He denies chest pain. He denies shortness of breath. He denies abdominal pain. Subjective/Events-last exam He is laying in bed. He says he slept well. He denies pain. He has been eating and drinking well. Objective Exam Vital Signs Vital Signs Date Time Temp Pulse Resp B/P (MAP) Pulse Ox O2 Delivery O2 Flow Rate FiO2 01/04/23 08:52 36.0 71 20 150/93 (112) 96 NIV CPAP 2.00 Capillary Refill : Less Than 3 Seconds General Appearance: No Apparent Distress, Obese Respiratory: Lungs Clear, No Respiratory Distress Cardiovascular: Regular Rate, Rhythm, No Murmur Gastrointestinal: Normal Bowel Sounds, Soft Extremity: Normal Inspection, No Pedal Edema Neurologic/Psychiatric: Alert, Normal Mood/Affect Skin: Normal Color, Warm/Dry Results/Procedures Lab Laboratory Tests 01/04/23 08:10 Patient resulted labs reviewed. Imaging: Reviewed Imaging Report Assessment/Plan Assessment and Plan Assess & Plan/Chief Complaint Debility Humerus fracture Fall Ortho following, Dr. Butt Planning for ORIF tomorrow PT/OT Continue pain regimen Holding muscle relaxer and gabapentin SW assisting with discharge, planning for [place] likely HOWARD- resolved AFib CAD Obesity Home meds as able states he had become noncompliant at home and [place] reviewed meds and adjusted med rec for what he is actually taking DVT prophylaxis: Lovenox Diagnosis/Problems Diagnosis/Problems (1) Debility Status: Acute (2) Humerus fracture Status: Acute Qualifiers: Encounter type: subsequent encounter Humerus Location: proximal Fracture type: closed Fracture alignment: displaced Laterality: right (3) Fall Status: Acute Qualifiers: Encounter type: subsequent encounter Qualified Codes: W19.XXXD - Unspecified fall, subsequent encounter (4) Obesity (5) Left shoulder pain Status: Acute Qualifiers: Chronicity: acute Qualified Codes: M25.512 - Pain in left shoulder (6) Left hip pain Status: Acute (7) HOWARD (acute kidney injury) Status: Resolved Resolution Date/Time: 01/03/23 @ 16:46 BETHANY FREDERICK MD Jan 04, 2023 15:34
[2023-01-04 16:02] VITALS: BP 134/63
[2023-01-04] MEDS: eZETimibe 10 MG (ZETIA) TABLET PO SCH (19:47)
[2023-01-04] MEDS: MELATONIN 10 MG TABLET PO SCH (19:47)
[2023-01-04 23:43] VITALS: BP 107/73
[2023-01-05] VITALS (9 sets, daily range): BP systolic 102–129; BP diastolic 51–75
[2023-01-05] MEDS: NS IV 1000 ML 1,000 ML IV SCH ×2 (04:11→18:07)
--- NOTE | 2023-01-05 07:37 | Progress Note-Pre Operative ---
Pre-Operative Progress Note Date of Available H&P: Dec 26, 2022 Date H&P Reviewed: Jan 05, 2023 Time H&P Reviewed: 07:37 Changes from last HP none Pre-Operative Diagnosis: closed, displaced right humeral shaft fracture LEÓN AVILA MD Jan 05, 2023 07:37
--- NOTE | 2023-01-05 07:38 | Progress Note-Post Operative ---
Post-Operative Progess Note Surgeon (s)/Logging Crew Supervisor (s) Surgeon LEÓN AVILA MD Logging Crew Supervisor: Joey Ardon Pre-Operative Diagnosis closed, displaced right humeral shaft fracture Post-Operative Diagnosis closed, displaced right humeral shaft fracture Procedure & Operative Findings Date of Procedure 01/05/23 Procedure Performed/Findings ORIF right humerus Anesthesia Type GETA Estimated Blood Loss Estimated blood loss (mL): 800ml Specimens/Packing Specimens Removed none Packing: none LEÓN AVILA MD Jan 05, 2023 07:38
[2023-01-05] MEDS ORDERED: NALOXONE 0.4 MG/ML 1 ML (NARCAN) VIAL IV PRN (07:45)
[2023-01-05] MEDS ORDERED: morphine INJ 4 MG/ML 1 ML (VIAL/SYRINGE) IVP PRN (07:45)
[2023-01-05] MEDS ORDERED: ONDANSETRON 4 MG/2 ML (SDV) Z0FRAN IVP PRN ×2 (07:45→15:00)
--- NOTE | 2023-01-05 09:03 | Occ Therapy Progress Note ---
Therapy Progress Note Patient to have surgery for R UE fx. OT to hold until orders renewed post surgery FAYE ODOM OT Jan 05, 2023 09:03
[2023-01-05] MEDS: CLOPIDOGREL 75 MG (PLAVIX) TABLET PO SCH (09:22)
[2023-01-05] MEDS ORDERED: HYDR-3817 PO (09:23)
[2023-01-05] MEDS: PANTOPRAZOLE 40 MG (PROTONIX) TAB PO SCH (10:04)
--- NOTE | 2023-01-05 10:34 | Physical Therapy Daily Note ---
PT Daily Note-Current Subjective Pt found lying in bed upon entry. Agreed to PT. States that he is feeling a lot better than he has been today. Pain reported /c hip abd/add. Pain Section J - Health Conditions 1. Rarely or not at all 2. Occasionally 3. Frequently 4. Almost constantly 8. Unable to answer Pain Effect on Sleep: 8 Pain Interference with Therapy: 8 Pain Interference w/Day-to-Day: 8 Mental Status Attachments: Oxygen Transfers SCALE: Activities may be completed with or without assistive devices. 6-Giuykiitlb-akwxqcj completes the activity by him/herself with no assistance from a helper. 5-Set-up or Clean-up Assistance-helper sets up or cleans up; patient completes activity. [place] assists only prior to or following the activity. 4-Supervision or Touching Assistance-helper provides verbal cues and/or touching/steadying and/or contact guard assistance as patient completes activity. Assistance may be provided throughout the activity or intermittently. 3-Partial/Moderate Assistance-helper does LESS THAN HALF the effort. [place] lifts, holds or supports trunk or limbs, but provides less than half the effort. 2-Substantial/Maximal Assistance-helper does MORE THAN HALF the effort. [place] lifts or holds trunk or limbs and provides more than half the effort. 5-Aglurddkz-owgosd does ALL the effort. Patient does none of the effort to complete the activity. Or, the assistance of 2 or more helpers is required for the patient to complete the activity. If activity was not attempted, code reason: 7-Patient Refused. 9-Not Applicable-not attempted and the patient did not perform the activity before the current illness, exacerbation or injury. 10-Not Attempted due to Environmental Limitations-(lack of equipment, weather restraints, etc.). 88-Not Attempted due to Medical Conditions or Safety Concerns. Treatments Supine Therapeutic Exercises (B): Quad sets x 10 Glute sets x 10 Hamstring sets x 10 Ankle pumps x 10 Heel slides x 10 Assessment Current Status: Fair Progress Pt displays limited ROM /c therapeutic exercises. Increased pain reported /c hip abd/add. Completes all exercises independently while supine in bed. Continue to progress per POC to improve strength, endurance, and functional ability. PT Short Term Goals Short Term Goals Time Frame: Jan 01, 2023 Roll Left & Right: 3 Sit to lyin Lying to sitting on side of be: 3 Sit to stand: 3 Chair/ejc-rz-yygyr transfer: 3 Walk 10 feet: 3 Walk 50 feet with two turns: [address] Go[address] [employer] Associate Justice Goals Roll Left & Right (QC): 6 Sit to Lying (QC): 6 Lying-Sitting on Side/Bed(QC): 6 Sit to Stand (QC): 6 Chair/Hba-pe-Rcmkx Xfer(QC): 6 Toilet Transfer (QC): 6 Walk 10 feet (QC): 6 Walk 50ft with 2 Turns (QC): 6 Walk 150 ft (QC): 6 PT Plan Treatment/Plan Treatment Plan: Continue Plan of Care Treatment Plan: Bed Mobility, Education, Functional Activity Beatriz, Functional Strength, Gait, Safety, Therapeutic Exercise, Transfers Treatment Duration: Jan 08, 2023 Frequency: 6 times per week Estimated Hrs Per Day: .5 hour per day Time Time In: 0838 Time Out: 0846 DATE: Jan 05, 2023 Total Billed Treatment Time: 8 Total Billed Treatment 1 visit EX x 1 YESSICA DESHPANDE ROUTE SALES ASSOCIATE Jan 05, 2023 10:34
[2023-01-05] MEDS ORDERED: BUPIVACAINE 0.5% 30 ML (SENSORCAINE) VIAL ONE (11:09)
[2023-01-05] MEDS: LACTATED RINGERS 1,000 ML IV PRN ×2 (12:00→13:28)
[2023-01-05] MEDS ORDERED: NEOSTIGMINE (BLOXIVERZ ) 1 MG/1ML 10 ML VIAL ONE (12:12)
[2023-01-05] MEDS ORDERED: LIDOCAINE PF 2% 5 ML (XYLOCAINE) VIAL ONE (12:12)
[2023-01-05] MEDS ORDERED: proPOfol 200 MG/20 ML (DIPRIVAN) VIAL IV ONE (12:12)
[2023-01-05] MEDS ORDERED: ROCURONIUM 50 MG/5 ML (ZEMURON) VIAL IV ONE ×2 (12:12→13:19)
[2023-01-05] MEDS ORDERED: GLYCOPYRROLATE 0.2 MG/ML (ROBINUL) 2 ML VIAL ONE (12:12)
[2023-01-05] MEDS ORDERED: fentaNYL INJ 100 MCG/2 ML AMP ONE (12:12)
[2023-01-05] MEDS ORDERED: ONDANSETRON 4 MG/2 ML (SDV) Z0FRAN ONE (12:12)
[2023-01-05] MEDS ORDERED: HYDROmorphone 2 MG/ML VIAL (DILAUDID) ONE ×2 (12:13→14:26)
[2023-01-05] MEDS ORDERED: ceFAZolin INJECTION 2,000 MG ONE (12:40)
[2023-01-05] MEDS ORDERED: SEVOFLURANE (ULTANE) 15 ML INHAL SOLN ONE (14:16)
[2023-01-05] MEDS ORDERED: HYDROmorphone 2 MG/ML VIAL (DILAUDID) IV ONE (15:00)
--- NOTE | 2023-01-05 15:23 | OPERATIVE REPORT ---
DATE OF SERVICE: 01/05/2023 PREOPERATIVE DIAGNOSIS: Closed displaced right humeral shaft fracture. POSTOPERATIVE DIAGNOSIS: Closed displaced right humeral shaft fracture. PROCEDURE: Open reduction and internal fixation of the right humerus. SURGEON: Magdaleno Avila MD EMBOSSING UNIT OPERATOR: Joey Ardon, who assisted throughout the procedure and closed the incision. ANESTHESIA: General endotracheal by Skip Dominguez CRNA. ESTIMATED BLOOD LOSS: 800 mL DRAINS: None. COMPLICATIONS: None. MATERIALS: Synthes periarticular proximal humerus plate with four 3.5 cortical screws distally, two 3.5 lag screws and 5 locking proximal humerus screws. The patient was transferred to the recovery room awake and stable condition. POSTOPERATIVE PLAN: Mobilization for 2 weeks and then conversion to a humeral orthosis with range of motion of the elbow and Codman's at the shoulder. STATEMENT OF MEDICAL NECESSITY: The patient is a 77-year-old gentleman with multiple medical problems who was [place]. He fell and was found to have a displaced humeral shaft fracture. Nonoperative treatment was initiated with a functional orthosis; however, the fracture remained significantly displaced. Because of this is recommended the patient undergo operative fixation. DESCRIPTION OF PROCEDURE: After risks and benefits of the procedure were discussed and questions were answered and informed consent was signed, placed on chart. The operative site was confirmed in the preoperative holding initialed by surgeon. The patient was then transferred to the operating room. After adequate levels of general endotracheal anesthetic were obtained, a timeout was called, confirming the operative site. The right shoulder and upper extremity were prepped and draped in the usual sterile fashion. A deltopectoral incision was made with extension anterolaterally. Hemostasis was obtained with cautery. The deltopectoral interval was identified and bluntly dissected until the fracture site was exposed. The deltoid was attached to the proximal fragment and the pectoralis was attached to the distal fragment, which was causing displacement. These insertions were left intact. The bone quality was fair. The fracture was reduced and two 3.5 lag screws were placed with good purchase. However, there was a split posteriorly, which extended proximally. This led to some displacement over the posterior aspect of the proximal fragment. However, the remainder of the reduction was felt to be anatomic. This displacement was felt to be acceptable. The Synthes 8-hole periarticular plate was then placed. The calcar screw was placed and fluoroscopy revealed well placed hardware, well reduced fracture. A distal nonlocking cortical screws were then placed in standard fashion with good purchase. An additional 4 proximal humeral screws were placed, all in locking fashion with good purchase obtained. A total of 4 distal screws were placed with the most proximal one placed in the lag type fashion with good purchase. Fluoroscopy in AP and lateral planes revealed well placed hardware with well reduced fracture. There was some step-off posteriorly, anteriorly. This was visualized under direct visualization and was minimal. The remainder of the reduction was anatomic. The shoulder and elbow were taken through range of motion. The construct was stable. The wound was copiously irrigated. 0 Vicryl was used to reapproximate the deltopectoral interval. The interval between the biceps and brachialis was loosely tacked with 0 Vicryl as well. This had been developed distally with careful subperiosteal dissection maintained and no retractors or reduction forceps was placed posteriorly in the area of the radial nerve. The wound was further irrigated. 0 Vicryl was used to deepen the subcutaneous tissue, 2-0 Vicryl for the superficial subcutaneous tissue, luciano used on the skin. A soft dressing and posterior splint were applied. The patient was transferred to the recovery room awake and in stable condition. Job ID: [id number] DocumentID: [id number] Dictated Date: 01/05/2023 14:43:34 [employer] Date: 01/05/2023 15:21:00 Dictated By: MAGDALENO AVILA MD
[2023-01-05] MEDS: ENOXAPARIN 40 MG/0.4 ML (LOVENOX) SYR SQ SCH (16:35)
--- NOTE | 2023-01-05 16:46 | Progress Note - Hospitalist ---
Subjective HPI/CC On Admission Date Seen by Provider: Jan 05, 2023 Time Seen by Provider: 10:10 Sarabjit Wright is a 77 year old male with PMH HTN, AFib, CAD, obesity, who presented with pain. He is visiting from [place]. He was in the ER on 12/24 due to humerus fracture. He was discharged from the ER with a splint, sling, and outpatient follow up recommended next week. He has not gotten out of his chair since going back to their hotel. He has been having functional incontinence. His family brought him back because they were unable to take care of him. He reports pain all over his body. He also has localized pain in his left hip and left arm. He denies chest pain. He denies shortness of breath. He denies abdominal pain. Subjective/Events-last exam He is having pain in his arm. He has no other complaints. Objective Exam Vital Signs Vital Signs Date Time Temp Pulse Resp B/P (MAP) Pulse Ox O2 Delivery O2 Flow Rate FiO2 01/05/23 15:40 36.2 70 16 118/58 (78) 96 OxyMask 3.00 Capillary Refill : Less Than 3 SecondsLess Than 3 Seconds General Appearance: No Apparent Distress, Obese Respiratory: Lungs Clear, No Respiratory Distress Cardiovascular: Regular Rate, Rhythm, No Murmur Gastrointestinal: Normal Bowel Sounds, Soft Extremity: No Pedal Edema; No Inflammation Neurologic/Psychiatric: Alert, Motor Weakness Results/Procedures Lab Patient resulted labs reviewed. Imaging: Reviewed Imaging Report Assessment/Plan Assessment and Plan Assess & Plan/Chief Complaint Debility Humerus fracture Fall Ortho following, Dr. Butt Planning for ORIF today PT/OT Continue pain regimen Holding muscle relaxer and gabapentin SW assisting with discharge, likely discharge to [place] tomorrow [facility]- resolved AFib CAD Obesity Home meds as able states he had become noncompliant at home and [employer] reviewed meds and adjusted med rec for what he is actually taking DVT prophylaxis: Lovenox Diagnosis/Problems Diagnosis/Problems (1) Debility Status: Acute (2) Humerus fracture Status: Acute Qualifiers: Encounter type: subsequent encounter Humerus Location: proximal Fracture type: closed Fracture alignment: displaced Laterality: right (3) Fall Status: Acute Qualifiers: Encounter type: subsequent encounter Qualified Codes: W19.XXXD - Unspecified fall, subsequent encounter (4) Obesity (5) Left shoulder pain Status: Acute Qualifiers: Chronicity: acute Qualified Codes: M25.512 - Pain in left shoulder (6) Left hip pain Status: Acute (7) HOWARD (acute kidney injury) Status: Resolved Resolution Date/Time: 01/03/23 @ 16:46 BETHANY FREDERICK MD Jan 05, 2023 16:46
--- NOTE | 2023-01-05 17:05 | Diagnostic Imaging Report ---
INDICATION: Right humeral fracture. TECHNIQUE: Intraoperative fluoro views are obtained during ORIF of oblique proximal humeral shaft fracture. Six views are obtained, 33.9 seconds of fluoro time was used. 1.87 mGy of exposure. FINDINGS: Oblique fracture of the proximal humeral shaft appears in near-anatomic alignment status post ORIF with plate and screws in place. There is no unexpected radiopaque foreign body. IMPRESSION: Anatomic alignment of proximal humeral shaft fracture status post ORIF. Dictated by: Dictated on workstation # [id number]
[2023-01-05] MEDS: MELATONIN 10 MG TABLET PO SCH (20:10)
[2023-01-05] MEDS: eZETimibe 10 MG (ZETIA) TABLET PO SCH (20:10)
[2023-01-05] MEDS: HYDROcodone/APAP 7.5 MG/325 MG (LORTAB, LORCET PLUS) TABLET PO PRN (23:08)
[2023-01-06] MEDS: HYDROcodone/APAP 7.5 MG/325 MG (LORTAB, LORCET PLUS) TABLET PO PRN ×3 (04:25→12:56)
[2023-01-06] MEDS: NS IV 1000 ML 1,000 ML IV SCH (05:42)
[2023-01-06 07:29] VITALS: BP 107/64
--- NOTE | 2023-01-06 07:42 | Progress Note ---
Standard Progress Note Progress Notes/Assess & Plan Date Seen by a Provider: Jan 06, 2023 Time Seen by a Provider: 07:35 Progress/Assessment & Plan C/O diffuse pain RUE intact MCP extension radiographs--diastasis at fracture site had a lenghty discussion with the patient and re options will proceed with clam shell orthosis if sig displacement will proceed with ORIF Final Diagnosis no complaints denies paresthesias RUE in splint intact MCP extension, thumb IP flexion, MCP abduction sensation intact in RUM distribution s/p R humerus ORIF ok to DC from my standpoint if doesn't return to [place] then willFU with me in two weeks LEÓN AVILA MD Jan 06, 2023 07:42
--- NOTE | 2023-01-06 08:16 | Anesthesia-General Post-Op ---
General Patient Condition Mental Status/LOC: Same as Preop Cardiovascular: Satisfactory Nausea/Vomiting: Absent Respiratory: Satisfactory Pain: Controlled Complications: Absent Post Op Complications Complications None Follow Up Care/Instructions Patient Instructions None needed. Anesthesia/Patient Condition Patient Condition Patient is doing well, no complaints, stable vital signs, no apparent adverse anesthesia problems. No complications reported per nursing. [place] [facility] [place] Yes SIMEON BOYD CRNA Jan 06, 2023 08:16
--- NOTE | 2023-01-06 08:23 | Physical Therapy Daily Note ---
PT Daily Note-Current Subjective Pt found lying in bed upon entry. Agreed to PT. Reports that he is having pain on his heels and feels like he might vomit. Does not rate pain. Pt's spouse reports pt does not remember much from the last few days. Pain Section J - Health Conditions 1. Rarely or not at all 2. Occasionally 3. Frequently 4. Almost constantly 8. Unable to answer Pain Effect on Sleep: 8 Pain Interference with Therapy: 8 Pain Interference w/Day-to-Day: 8 Mental Status Patient Orientation: Person, Place Attachments: Oxygen Transfers SCALE: Activities may be completed with or without assistive devices. 0-Hpjzgpaeoq-kcgzqkb completes the activity by him/herself with no assistance from a helper. 5-Set-up or Clean-up Assistance-helper sets up or cleans up; patient completes activity. [place] assists only prior to or following the activity. 4-Supervision or Touching Assistance-helper provides verbal cues and/or touching /steadying and/or contact guard assistance as patient completes activity. Assistance may be provided throughout the activity or intermittently. 3-Partial/Moderate Assistance-helper does LESS THAN HALF the effort. [place] lifts, holds or supports trunk or limbs, but provides less than half the effort. 2-Substantial/Maximal Assistance-helper does MORE THAN HALF the effort. [place] lifts or holds trunk or limbs and provides more than half the effort. 3-Cqtrkxmsj-lnwhkr does ALL the effort. Patient does none of the effort to complete the activity. Or, the assistance of 2 or more helpers is required for the patient to complete the activity. If activity was not attempted, code reason: 7-Patient Refused. 9-Not Applicable-not attempted and the patient did not perform the activity before the current illness, exacerbation or injury. 10-Not Attempted due to Environmental Limitations-(lack of equipment, weather restraints, etc.). 88-Not Attempted due to Medical Conditions or Safety Concerns. Gait Training Does the Patient Walk?: No and Walking Goal IS indicated Treatments Supine Therapeutic Exercises (B): SLRs x 10 Heel slides x 10 Quad sets x 10 Glute sets x 10 Ankle pumps x 10 Hip abd/add x 10 Assessment Current Status: Fair Progress Pt is much more alert and attentive today. Displays improved tolerance and ROM /c therapeutic exercises. Pain on B heels reported /c treatment. Continue to progress pt as tolerated to improve strength, endurance, and functional ability. PT Short Term Goals Short Term Goals Time Frame: Jan 01, 2023 Roll Left & Right: 3 Sit to lyin Lying to sitting on side of be: 3 Sit to stand: 3 Chair/txj-ih-vjzdt transfer: 3 Walk 10 feet: 3 Walk 50 feet with two turns: 3 PT [facility] Goals Pl[employer] Jig And Fixture Builder Goals Roll Left & Right (QC): 6 Sit to Lying (QC): 6 Lying-Sitting on Side/Bed(QC): 6 Sit to Stand (QC): 6 Chair/Bby-zg-Zbtjp Xfer(QC): 6 Toilet Transfer (QC): 6 Walk 10 feet (QC): 6 Walk 50ft with 2 Turns (QC): 6 Walk 150 ft (QC): 6 PT Plan Treatment/Plan Treatment Plan: Continue Plan of Care Treatment Plan: Bed Mobility, Education, Functional Activity Beatriz, Functional Strength, Gait, Safety, Therapeutic Exercise, Transfers Treatment Duration: Jan 08, 2023 Frequency: 6 times per week Estimated Hrs Per Day: .5 hour per day Time Time In: 804 Time Out: 813 DATE: Jan 06, 2023 Total Billed Treatment Time: 9 Total Billed Treatment 1 visit EX x 1 YESSICA DESHPANDE SR SOLUTIONS CONSULTANT Jan 06, 2023 08:23
[2023-01-06] MEDS: PANTOPRAZOLE 40 MG (PROTONIX) TAB PO SCH (08:56)
[2023-01-06] MEDS: CLOPIDOGREL 75 MG (PLAVIX) TABLET PO SCH (08:56)
--- NOTE | 2023-01-06 11:00 | Discharge Summary ---
Discharge Summary Reconcile Patient Problems Problems Reviewed?: Yes Hospital Course Hospital Course Date of Admission: Dec 29, 2022 at 16:03 Admission Diagnosis : Debility, Humerus fracture Family Physician/Provider: No,Local Physician Date of Discharge: 01/06/23 Discharge Diagnosis: Debility, humerus fracture Hospital Course: Sarabjit Wright is a 77 year old male who was admitted after a fall with a humerus fracture. He was very debilitated. Ortho was consulted and surgically repaired his right humerus. He was discharged to [facility] for skilled therapies. He is from [place] and his is working to set up transportation back close to home. Labs and Pending Lab Test: Microbiology 01/03/23 MRSA Screen - Final, Complete MRSA not isolated Home Meds Active Hydrocodone-Acetamin 7.5-325 (Hydrocodone/Acetaminophen) 7.5 Mg-325 Mg Tablet 1 Each PO Q4H PRN Reported Nitroglycerin 0.4 Mg Tab.subl 0.4 Mg SL UD PRN Ativan (Lorazepam) 0.5 Mg Tablet 0.5 Mg PO BID PRN Ibuprofen 200 Mg Tablet 200 Mg PO Q8H PRN Furosemide 40 Mg Tablet 40 Mg PO BID Chlorpheniramine Maleate 4 Mg Tablet 4 Mg PO QID Aspirin EC (Aspirin) 81 Mg Tablet. 81 Mg PO DAILY Follow Up Appt.: Dr. Butt in 2 weeks Skilled NF Admit to: [facility] (SNF) I certify that SNF services are required to be given on an inpatient basis because of the above named patient's need for penitentiary care on a continuing basis for the conditions(s) for which he/she was receiving inpatient hospital services prior to his/her transfer to the SNF. Fpc Facility Order: Nursing Services, Medical Office Secretary-Evaluate & Treat, Physical Therapy-Evaluate & Treat Oxygen Delivery Method: NIV CPAP Discharge Diet: No Restrictions Daily Activity as Tolerated: Yes Resuscitation Status: Full Code Bethany Frederick Jan 06, 2023 10:57 Discharge Physical Exam General: Alert, No Acute Distress, Other (obese) Lungs: Clear to Auscultation, Normal Air Movement Heart: Regular Rate, No Murmurs Abdomen: Normal Bowel Sounds, Soft, No Tenderness Extremities: Other (right arm in sling, right hand swelling) Neuro: Normal Speech, Normal Tone Psych/Mental Status: Mental Status NL, Mood NL BETHANY FREDERICK MD Jan 06, 2023 11:00
[2023-01-06] MEDS ORDERED: LORA-404 PO (12:45)
[2023-01-06] MEDS ORDERED: HYDR-3817 PO (12:45)
[2023-01-06] MEDS ORDERED: MELA10TA2 PO (12:45)
[2023-01-06] MEDS ORDERED: NITR0.4T39 SL (12:45)
[2023-01-06] MEDS ORDERED: PANT40TA52 PO (12:45)
[2023-01-06] MEDS ORDERED: EZET10TA49 PO (12:45)
[2023-01-06] MEDS ORDERED: CARV6.252 PO (12:45)
[2023-01-06] MEDS ORDERED: CLOP75TA28 PO (12:45)
--- NOTE | 2023-01-06 13:08 | Occupational Ther Daily Note ---
OT Current Status-Daily Note Subjective Patient laying in bed, declines OOB activity however is pleasant and able to voice event of fall to OT, does not remember OT or behaviors prior to surgery Mental Status/Objective Patient Orientation: Person, Place Attachments: Duque Catheter, IV ADL-Treatment Therapy Code Descriptions/Definitions Functional [place] Measure: 0=Not Assessed/NA 4=Minimal Assistance 1=Total Assistance 5=Supervision or Setup 2=Maximal Assistance 6=Modified [place] 3=Moderate Assistance 7=Complete IndependenceSCALE: Activities may be completed with or without assistive devices. 5-[id number]-[id number] completes the activity by him/herself with no assistance from a helper. 5-Set-up or Clean-up Assistance-helper sets up or cleans up; patient completes activity. [place] assists only prior to or following the activity. 4-Supervision or Touching Assistance-helper provides verbal cues and/or touching/steadying and/or contact guard assistance as patient completes activity. Assistance may be provided throughout the activity or intermittently. 3-Partial/Moderate Assistance-helper does LESS THAN HALF the effort. [place] lifts, holds or supports trunk or limbs, but provides less than half the effort. 2-Substantial/Maximal Assistance-helper does MORE THAN HALF the effort. [place] lifts or holds trunk or limbs and provides more than half the effort. 2-Nlkmfuapz-[id number] does ALL the effort. Patient does none of the effort to complete the activity. Or, the assistance of 2 or more helpers is required for the patient to complete the activity. If activity was not attempted, code reason: 7-Patient Refused. 9-Not Applicable-not attempted and the patient did not perform the activity before the current illness, exacerbation or injury. 10-Not Attempted due to Environmental Limitations-(lack of equipment, weather restraints, etc.). 88-Not Attempted due to Medical Conditions or Safety Concerns. Other Treatment Participates in purposeful functional reach activity and isometric strengthen of PEREZ, SALAS composite grasp 4/5, education for ROM to digits and wrist for joint mobility and edema control Education OT Patient Education: Correct positioning, Exercise program, Progress toward Goal/Update tx plan, Purpose of tx/functional activities, Reviewed precautions, Rehab process Teaching Recipient: Patient, Family Teaching Methods: Demonstration, Discussion Response to Teaching: Verbalize Understanding, Reinforcement Needed OT Care Home Goals Care Home Goals Eating (QC): 6 Oral Hygiene (QC): 5 Toileting Hygiene (QC): 4 Shower/Bathe Self (QC): 4 Upper Body Dressing (QC): 4 Lower Body Dressing (QC): 4 On/Off Footwear (QC): 5 1=Demonstrate adherence to instructed precautions during ADL tasks. 2=Patient will verbalize/demonstrate understanding of assistive devices/modifications for ADL. 3=Patient will improve strength/tolerance for activity to enable patient to perform ADL's. OT Education/Plan Problem List/Assessment Assessment: Decreased Activ Tolerance, Decreased Safety Aware, Decreased UE Strength, Dependent Transfers, Impaired Bed Mobility, Impaired Cognition, Impaired Coordination, Impaired Funct Balance, Impaired Self-Care Skills, Restricted Funct UE ROM Discharge Recommendations Plan/Recommendations: Continue POC Treatment Plan/Plan of Care Treatment,Training & Education: Yes Patient would benefit from OT for education, treatment and training to promote independence in ADL's, mobility, safety and/or upper extremity function for ADL's. Plan of Care: ADL Retraining, Caregiver Training, Cognitive Retraining, Concurrent Therapy, Functional Mobility, Group Exercise/Act as Ind, UE Funct Exercise/Act, UE Neuromus Re-Ed/Coord Treatment Duration: Jan 01, 2023 Frequency: 3 times per week (3-5 times per week) Estimated Hrs Per Day: .25 hour per day Agreement: Yes Rehab Potential: Fair Time Start Time: 10:21 Stop Time: 10:35 DATE: Jan 06, 2023 Total Time Billed (hr/min): 14 Billed Treatment Time EX 14 min FAYE ODOM OT Jan 06, 2023 13:08
== END 2023-01-06 14:22 | DRG 493 ==
LOC: EDUNIT# 21:55 → ER 21:56 → 4TH 12-26 02:01 → OBSVTOIN 12-29 16:03 → 4TH 01-04 14:43
PROVIDERS: ADMIT Internal Medicine; ATTEND Internal Medicine
PROC: 5A09357 Assistance with Respiratory Ventilation, Less than 24 Consecutive Hours, Continuous Positive Airway Pressure (ICD-10-PCS; 2022-12-31)
PROC: 0PSF04Z Reposition Right Humeral Shaft with Internal Fixation Device, Open Approach (ICD-10-PCS; principal; 2023-01-05 12:16)
DX: S42.331A Displaced oblique fracture of shaft of humerus, right arm, initial encounter for closed fracture (principal); N17.9 Acute kidney failure, unspecified; W18.30XA Fall on same level, unspecified, initial encounter; I50.9 Heart failure, unspecified; Z95.1 Presence of aortocoronary bypass graft; I48.91 Unspecified atrial fibrillation; Z95.0 Presence of cardiac pacemaker; I11.0 Hypertensive heart disease with heart failure; I25.10 Atherosclerotic heart disease of native coronary artery without angina pectoris; E66.9 Obesity, unspecified; M25.552 Pain in left hip; M25.512 Pain in left shoulder; Z68.39 Body mass index [BMI] 39.0-39.9, adult
CPT/HCPCS: 36415; 72192; 73060; 76000; 80048; 80053; 81000; 82550; 85007; 85025; 85027; 86850; 86900; 86901; 87081; 94760; G0378